=== PATIENT | male | born 1950 | race Caucasian/White ===

== ENCOUNTER 2020-12-17 09:03 | Inpatient (IN) ==
[2020-12-17] MEDS ORDERED: SODIUM CHLORIDE 0.9% 1000ML 1,000 ML IV STA (09:36)
[2020-12-17 09:49] LABS: Basophils # (auto) 0.01 K/uL (0-0.2); Basophils % (auto) 0.1 %; Hemoglobin 15.6 g/dL (14.0-18.0); Immature Granulocytes # (auto) 0.02 K/uL (0.00-0.02); Immature Granulocytes % (auto) 0.2 %; Lymphocytes # (auto) 0.93 K/uL (1.2-3.4); Lymphocytes % (auto) 11.3 %; Mean Corpuscular Hemoglobin 32.4 pg (25-34); Mean Corpuscular Hgb Conc 35.5 g/dL (32-36); Mean Corpuscular Volume 91.5 fL (80-100); Mean Platelet Volume 9.6 fL (7.4-10.4); Monocytes # (auto) 0.62 K/uL (0.11-0.59); Monocytes % (auto) 7.6 %; Neutrophils # (auto) 6.63 K/uL (1.4-6.5); Neutrophils % (auto) 80.8 %; Platelet Count 304 K/uL (130-400); RDW Coefficient of Variation 13.8 % (11.5-14.5); RDW Standard Deviation 47.1 fL (36.4-46.3); Red Blood Count 4.81 M/uL (4.7-6.1); White Blood Count 8.21 K/uL (4.8-10.8)
[2020-12-17] MEDS ORDERED: dexAMETHasone**PF** 10 MG/ML VIAL IV ONE (10:01)
--- NOTE | 2020-12-17 10:08 | Emergency Department Note ---
Impression & Plan COVID-19, Hypoxia ED Provider Note INFORMANT: Patient ED PROVIDER(S): Josesito Carbone MD CHIEF COMPLAINT: Illness PLAN: Disposition: Admitted Condition: Good Outpatient prescription management: none Referral: None MEDICAL DECISION MAKING: Patient presented to the ER because of illness. He was diagnosed with COVID-19 as an outpatient. Confirmation Covid testing was performed. IV was established and he was hydrated. Patient was given IV Decadron as he was hypoxic. He was doing well with supplemental oxygen. Confirmation Covid testing was positive. His D-dimer was elevated and he underwent CT imaging. Chest x-ray showed a finding consistent with Covid pneumonia. CT imaging did not reveal any evidence of clot however since Covid findings were noted. Consultation was made with Dr. Benedict Rm of the [facility] service. Patient was evaluated in the ER for further management. Triage Nursing notes reviewed and agree them. Vital Signs: reviewed and remarkable for hypoxia for EMS Differential diagnosis: COVID-19, reactive airway disease, pneumonia, pneumothorax, COPD, CHF, infections, cardiac ischemia, pulmonary embolism, musculoskeletal, gastrointestinal, as well as other pathologies. Diagnostics interpreted by me: ECG: Rate: 82 Rhythm:Normal sinus [place]:Normal QRS:Normal ST segements:No elevation or depression Other:No PACs or PVCs Cardiac Monitoring: Cardiac monitoring ordered by me: The patient was placed on continuous cardiac monitoring and observed. It revealed a normal sinus rhythm at 78 beats per minute. Imaging studies: Chest x-ray concerning for pneumonia. CT imaging of the chest there is no evidence of pulmonary embolism. Findings are consistent with Covid pneumonia present. HPI: The patient is a 70 year old male who presents to the Emergency Room with complaints of illness. This started a week and a half ago and he was diagnosed with COVID-19. His was sick with similar symptoms first. The patient went to [facility] and was diagnosed. The patient also notes the following associated symptoms, diarrhea, nausea, fevers, chills shortness of breath, weakness, and cough. The patient has found no relieving factors. Patient was prescribed prednisone by his PCP. Current pain is rated as 0/10. Patient's O2 saturation for EMS was 84%. Pt denies LOC, headache, diaphoresis, visual changes, neck pain, chest pain, vomiting, back pain, melena, hematochezia, urinary symptoms, numbness, weakness, lymphadenopathy, rash, or other complaints. ROS: See above HPI for pertinent positives & negatives. A total of 10 systems reviewed and were otherwise negative. PAST MEDICAL HISTORY:See Below , hypertension PAST SURGICAL HISTORY:See Below, FAMILY HISTORY:See Below SOCIAL HISTORY:See Below, , smoker HOME MEDICATIONS:See Below ALLERGIES:See Below VITALS:See Below PHYSICAL EXAMINATION: GENERAL: Awake, alert, dyspneic-appearing, in no distress HENT: Normocephalic, atraumatic. Oropharynx unremarkable. EYES: Normal conjunctiva. Sclera non-icteric. NECK: Inspection normal. Non-tender. Supple. No nuchal rigidity. FROM. No masses. RESPIRATORY: Few scattered crackles otherwise clear to auscultation. No wheezes. Increased respiratory effort. CARDIAC: Normal rate. Normal rhythm. No murmurs. No rubs. Extremities warm and well perfused. Pulses equal. No JVD. GI: Soft, non-distended. No tenderness to palpation. No rebound or guarding. No masses. RECTAL: Deferred. MUSCULOSKELETAL: Atraumatic. Chest examination reveals no tenderness. The back is symmetrical on inspection without obvious abnormality. There is no CVA tenderness to palpation. No joint edema. LOWER EXTREMITIES: Calves are equal size bilaterally and non-tender. No edema. No discoloration. NEURO: Normal sensorium. No sensory or motor deficits noted. SKIN: No rash or jaundice noted. CRITICAL CARE: I have personally spent greater than 35 minutes of critical care time in the direct management of this patient. This includes bedside care, interpretation of diagnostic studies, and testing, discussion with consultants, patient, and family members, and other required patient management activities. These minutes are in excess of all separately billable procedures. 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 Beliefs That Will Affect Care: None Current Living Situation: Spouse Feels Safe at Home: Yes Assistive Devices: Glasses Allergies Allergies Allergy/AdvReac Type Severity Reaction Status Date / Time No Known Allergies Allergy Unverified 12/17/20 10:22 Home Meds Home Medications Medication Instructions Recorded Confirmed [id number] 10 20 ml PO DIRECTED PRN 12/17/20 12/17/20 mg-650 mg/20 mL (day-nt) oral liquids (Mucinex Fast-Max Day Sev Cold-Nite Cold-Flu) Results & Data (ED) Vital Signs Vital Signs - 24 hr 12/17/20 09:07 12/17/20 09:10 12/17/20 09:42 Temperature 36.9 C 36.9 C Temperature Source Oral Oral Pulse Rate 178 H 85 79 Pulse Rate [Apical] 78 Pulse Rate from SpO2 Sensor 127 H Pulse Rhythm Regular Pulse Rhythm [Apical] Regular Pulse Strength Normal Pulse Strength [Apical] Normal Respiratory Rate 31 H 27 H 27 H Respiratory Effort / Characteristics Short of Breath SOB on Exertion Short of Breath SOB on Exertion Respiratory Depth Normal Normal Respiratory Pattern Regular Regular Blood Pressure 134/74 134/74 Blood Pressure [Right Arm] 134/74 Blood Pressure Mean 94 94 Blood Pressure Mean [Right Arm] 94 Blood Pressure Position Semi-fowlers Blood Pressure Position [Right Arm] Semi-fowlers Pulse Oximetry 94 94 93 Oxygen Delivery Method Nasal Cannula Nasal Cannula Nasal Cannula Oxygen Flow Rate 2 2 2 Sepsis Recent Fever Within 48 Hours No Sepsis New/Unexplained Change in Mental Status No Sepsis Action Taken by Nursing No Action Required 12/17/20 10:05 12/17/20 10:30 12/17/20 11:00 Temperature Temperature Source Pulse Rate 80 83 75 Pulse Rate [Apical] Pulse Rate from SpO2 Sensor 79 83 Pulse Rhythm Pulse Rhythm [Apical] Pulse Strength Pulse Strength [Apical] Respiratory Rate 33 H 34 H 24 Respiratory Effort / Characteristics Respiratory Depth Respiratory Pattern Blood Pressure 105/54 L 131/74 130/65 Blood Pressure [Right Arm] Blood Pressure Mean 71 93 86 Blood Pressure Mean [Right Arm] Blood Pressure Position Blood Pressure Position [Right Arm] Pulse Oximetry 93 94 Oxygen Delivery Method Nasal Cannula Nasal Cannula Nasal Cannula Oxygen Flow Rate 2 2 2 Sepsis Recent Fever Within 48 Hours Sepsis New/Unexplained Change in Mental Status Sepsis Action Taken by Nursing 12/17/20 11:30 Temperature Temperature Source Pulse Rate 76 Pulse Rate [Apical] Pulse Rate from SpO2 Sensor 77 Pulse Rhythm Pulse Rhythm [Apical] Pulse Strength Pulse Strength [Apical] Respiratory Rate 21 Respiratory Effort / Characteristics Respiratory Depth Respiratory Pattern Blood Pressure 122/66 Blood Pressure [Right Arm] Blood Pressure Mean 84 Blood Pressure Mean [Right Arm] Blood Pressure Position Blood Pressure Position [Right Arm] Pulse Oximetry 94 Oxygen Delivery Method Nasal Cannula Oxygen Flow Rate 2 Sepsis Recent Fever Within 48 Hours Sepsis New/Unexplained Change in Mental Status Sepsis Action Taken by Nursing Laboratory Data Result diagrams: 12/17/20 09:25 12/17/20 09:25 Lab Results 12/17/20 12/17/20 12/17/20 Range/Units 09:25 09:25 09:25 WBC 8.21 (4.8-10.8) K/uL RBC 4.81 (4.7-6.1) M/uL Hgb 15.6 (14.0-18.0) g/dL Hct 44.0 (42-52) % MCV 91.5 (80-100) fL MCH 32.4 (25-34) pg MCHC 35.5 (32-36) g/dL RDW Std Deviation 47.1 H (36.4-46.3) fL RDW Coeff of Pal 13.8 (11.5-14.5) % Plt Count 304 (130-400) K/uL MPV 9.6 (7.4-10.4) fL Immature Gran % (Auto) 0.2 % Neut % (Auto) 80.8 % Lymph % (Auto) 11.3 % [place] % (Auto) 7.6 % Eos % (Auto) 0.0 % Baso % (Auto) 0.1 % Neut # (Auto) 6.63 H (1.4-6.5) K/uL Lymph # (Auto) 0.93 L (1.2-3.4) K/uL [place] # (Auto) 0.62 H (0.11-0.59) K/uL Eos # (Auto) 0.00 (0-0.5) K/uL Baso # (Auto) 0.01 (0-0.2) K/uL Immature Gran # (Auto) 0.02 (0.00-0.02) K/uL D-Dimer 650 H* (0-500) ug/L FEU Sodium 134 L (136-145) mmol/L Potassium 4.1 (3.5-5.1) mmol/L Chloride 103 (98-107) mmol/L Carbon Dioxide 23 (21-32) mmol/L Anion Gap 9.0 (3-11) BUN 75 H (7-18) mg/dl Creatinine 1.44 H (0.6-1.4) mg/dl Est Cr Clr Drug Dosing 47.7 ml/min Est GFR ( Amer) 57.4 ml/min Est GFR (Non-Af Amer) 49.5 ml/min BUN/Creatinine Ratio 51.8 H (10-20) Glucose 126 H (70-99) mg/dl Calcium 8.9 (8.5-10.1) mg/dl Magnesium 3.1 H (1.8-2.4) mg/dl Total Bilirubin 0.5 (0.2-1) mg/dl AST 75 H (15-37) U/L ALT 56 (12-78) U/L Alkaline Phosphatase 71 (45-117) U/L Troponin I < 0.015 (0-0.045) ng/ml NT-Pro-B Natriuret Pep 385 (0-900) pg/ml Total Protein 7.8 (6.4-8.2) gm/dl Albumin 3.1 L (3.4-5.0) gm/dl Globulin 4.7 H (2.5-4.0) gm/dl Albumin/Globulin Ratio 0.7 L (0.9-2) Specimen Hemolysis Urine Color Urine Appearance (Clear) Urine pH (4.5-7.5) Ur Specific [place] (1.000-1.030) Urine Protein (Negative) Urine Glucose (UA) (Negative) Urine Ketones (Negative) Urine Blood (Negative) Urine Nitrite (Negative) Urine Bilirubin (Negative) Urine Urobilinogen (Negative) Ur Leukocyte Esterase (Negative) Urine WBC (Auto) (0-5) /hpf Urine RBC (Auto) (0-4) /hpf U Hyaline Cast (Auto) (0-5) /lpf U Epithel Cells (Auto) (0-5) /lpf Urine Bacteria (Auto) (Negative) Amorphous Sediment (None Prsent) COVID-19 Eval Order SARS-CoV-2 (PCR) (Negative) 12/17/20 12/17/20 12/17/20 Range/Units 10:10 10:10 10:31 WBC (4.8-10.8) K/uL RBC (4.7-6.1) M/uL Hgb (14.0-18.0) g/dL Hct (42-52) % MCV (80-100) fL MCH (25-34) pg MCHC (32-36) g/dL RDW Std Deviation (36.4-46.3) fL RDW Coeff of Pal (11.5-14.5) % Plt Count (130-400) K/uL MPV (7.4-10.4) fL Immature Gran % (Auto) % Neut % (Auto) % Lymph % (Auto) % [place] % (Auto) % Eos % (Auto) % Baso % (Auto) % Neut # (Auto) (1.4-6.5) K/uL Lymph # (Auto) (1.2-3.4) K/uL [place] # (Auto) (0.11-0.59) K/uL Eos # (Auto) (0-0.5) K/uL Baso # (Auto) (0-0.2) K/uL Immature Gran # (Auto) (0.00-0.02) K/uL D-Dimer (0-500) ug/L FEU Sodium (136-145) mmol/L Potassium (3.5-5.1) mmol/L Chloride (98-107) mmol/L Carbon Dioxide (21-32) mmol/L Anion Gap (3-11) BUN (7-18) mg/dl Creatinine (0.6-1.4) mg/dl Est Cr Clr Drug Dosing ml/min Est GFR ( Amer) ml/min Est GFR (Non-Af Amer) ml/min BUN/Creatinine Ratio (10-20) Glucose (70-99) mg/dl Calcium (8.5-10.1) mg/dl Magnesium (1.8-2.4) mg/dl Total Bilirubin (0.2-1) mg/dl AST (15-37) U/L ALT (12-78) U/L Alkaline Phosphatase (45-117) U/L Troponin I (0-0.045) ng/ml NT-Pro-B Natriuret Pep (0-900) pg/ml Total Protein (6.4-8.2) gm/dl Albumin (3.4-5.0) gm/dl Globulin (2.5-4.0) gm/dl Albumin/Globulin Ratio (0.9-2) Specimen Hemolysis Urine Color Dark Yellow Urine Appearance Clear (Clear) Urine pH 5.0 (4.5-7.5) Ur Specific [place] 1.018 (1.000-1.030) Urine Protein Trace H (Negative) Urine Glucose (UA) Negative (Negative) Urine Ketones Negative (Negative) Urine Blood Negative (Negative) Urine Nitrite Negative (Negative) Urine Bilirubin Negative (Negative) Urine Urobilinogen Negative (Negative) Ur Leukocyte Esterase Negative (Negative) Urine WBC (Auto) 1-5 (0-5) /hpf Urine RBC (Auto) 5-10 H (0-4) /hpf U Hyaline Cast (Auto) 10-30 H (0-5) /lpf U Epithel Cells (Auto) >30 H (0-5) /lpf Urine Bacteria (Auto) 1+ H (Negative) Amorphous Sediment Present A (None Prsent) COVID-19 Eval Order Covid19 at [facility] SARS-CoV-2 (PCR) POSITIVE A* (Negative) Administered Medications Albuterol (Albuterol Hfa 8 Gm Inhaler) 2 puffs INH QIDR AVINASH; Protocol Stop: 01/16/21 15:34 Last Admin: 12/17/20 16:57 Dose: 2 puffs Documented by: [id number] Sodium Chloride (Nss 1000ml) 1,000 mls @ 125 mls/hr IV .Q8H STA Stop: 12/17/20 17:35 Last Infusion: 12/17/20 15:35 Dose: 0 mls/hr Documented by: [id number] Admin: 12/17/20 10:15 Dose: 125 mls/hr Documented by: [id number] Potassium Chloride/Sodium Chloride (Normal Saline W/20 Meq Kcl) 20 meq in 1,000 mls @ 80 mls/hr IV .[id number] AVINASH Stop: 12/18/20 04:04 Last Admin: 12/17/20 16:49 Dose: 80 mls/hr Documented by: [id number] Ceftriaxone Sodium 1,000 mg/ (Dextrose) 50 mls @ 100 mls/hr IV Q24H [facility]; Protocol Stop: 12/24/20 15:59 Last Admin: 12/17/20 16:50 Dose: 100 mls/hr Documented by: [id number] Discontinued Medications Dexamethasone Sodium Phosphate (DexamethasonePf 10 Mg/Ml Vial) 6 mg IV NOW ONE Stop: 12/17/20 10:02 Last Admin: 12/17/20 10:18 Dose: 6 mg Documented by: [id number] Ioversol (Optiray 320 125ml) 120 ml IV ONCE ONE Stop: 12/17/20 10:30 Last Admin: 12/17/20 10:29 Dose: 120 ml Documented by: [id number] Imaging Data Radiologist's Impression: Chest X-Ray 12/17/20 09:37 XR chest 1V portable CLINICAL HISTORY: Dyspnea COMPARISON STUDY: No previous studies for comparison. FINDINGS: No pneumothorax. Minimal blunting of the left costophrenic angle could represent small left pleural effusion. Asymmetrical mixed reticular and airspace opacities within left mid to lower lung could represent infiltrative process/pneumonia. Cardiomediastinal silhouette is within normal limits in size. No significant pulmonary vascular congestion.. Aorta is calcified Osseous structures: Degenerative changes of the spine. IMPRESSION: 1. Infiltrative process/pneumonia within left mid to lower lung. Small left pleural effusion. ACT 112: Negative or not required by law. The above report was generated using voice recognition software. It may contain grammatical, syntax or spelling errors. Electronically signed by: Lucina Lubin DO 12/17/2020 10:20 AM Chest CTA 12/17/20 10:17 CHEST CTA for PULMONARY ARTERIES CT DOSE: 386.22 mGycm HISTORY: Covid positive. Shortness of breath. Positive d-dimer. TECHNIQUE: Multiaxial CT images of the chest were performed following the intravenous administration of contrast to evaluate the pulmonary arteries. Maximal intensity projection images were also obtained. A dose lowering technique was utilized adhering to the principles of ALARA. COMPARISON STUDY: None. FINDINGS: Normal caliber thoracic aorta with no evidence for dissection. Nondiagnostic evaluation of the subsegmental lower lobe pulmonary arteries and majority of the segmental right lower lobe pulmonary arteries due to the respiratory motion artifact. Otherwise, no filling defects within the remaining pulmonary arteries to suggest a pulmonary embolus. There is mild left pleural thickening most pronounced at the lung base. Limited views of the upper abdomen demonstrate a normal spleen and adrenal glands. There is a small hiatus hernia. There is a 1.4 cm hypodense lesion within the right hepatic dome. This is now well visualized due to the motion artifact. Normal esophagus. No pleural or pericardial effusions. Subcentimeter mediastinal and hilar lymph nodes do not meet CT criteria for pathologic involvement. The heart is normal in size. No pneumothorax. Emphysema. Mild volume loss within the left hemithorax. There is mild chronic interstitial thickening. There are small faint groundglass airspace opacities within the base of the right middle lobe. Focal consolidation within the left lower lobe posteriorly. This has the appearance of round atelectasis. However, superimposed pneumonia would be impossible to exclude given the lack of prior studies. There are additional areas of scarlike densities within the lingula with small patchy densities and interstitial thickening within the later al aspect of the left upper lobe. This could be chronic or represent an atypical pneumonia. IMPRESSION: 1. No evidence for pulmonary embolus with limitations as described above. 2. Mild volume loss and mild left pleural thickening. There is a focal area of consolidation within the left lower lobe posteriorly. This appears to represent round atelectasis. However, a superimposed pneumonia would be impossible to exclude given the lack of prior studies. 3 month follow-up recommended to evaluate for stability/resolution. 3. A few faint small patchy groundglass densities within the right middle lobe and a few small patchy densities and interstitial thickening within the left upper lobe. This raises the possibility of a mild viral pneumonia. 4. Emphysema. 5. Additional findings as described above. ACT 112: Negative or not required by law. Electronically signed by: Nader Palm M.D. 12/17/2020 11:03 AM Discharge Plan Visit Data Chief Complaint: Illness Stated Complaint: COUGH, CHEST PAIN, DIARRHEA, COVID + ED Provider: Josesito Carbone Discharge Problem: COVID-19, Hypoxia Patient Disposition: Admitted As Inpatient Discharge Instructions Interventions: ED Discharge Assessment Last Done: 12/17/20 15:05
[2020-12-17 10:16] LABS: D Dimer 650 ug/L FEU (0-500)
[2020-12-17 10:20] LABS: Alanine Aminotransferase 56 U/L (12-78); Albumin Globulin Ratio 0.7 (0.9-2); Albumin Level 3.1 gm/dl (3.4-5.0); Alkaline Phosphatase 71 U/L (45-117); Aspartate Aminotransferase 75 U/L (15-37); BUN Creatinine Ratio 51.8 (10-20); Bilirubin,Total 0.5 mg/dl (0.2-1); Blood Urea Nitrogen 75 mg/dl (7-18); Calcium 8.9 mg/dl (8.5-10.1); Carbon Dioxide 23 mmol/L (21-32); Chloride 103 mmol/L (98-107); Creatinine Clr Calc Pharmacy 47.7 ml/min; Est GFR (African American) 57.4 ml/min; Est GFR (Non-African American) 49.5 ml/min; Globulin 4.7 gm/dl (2.5-4.0); Glucose 126 mg/dl (70-99); Magnesium 3.1 mg/dl (1.8-2.4); NT Pro B Type Natriuretic Pept 385 pg/ml (0-900); Potassium 4.1 mmol/L (3.5-5.1); Sodium 134 mmol/L (136-145); Total Protein 7.8 gm/dl (6.4-8.2); Troponin I < 0.015 ng/ml (0-0.045)
--- NOTE | 2020-12-17 10:21 | XRay Report ---
XR chest 1V portable CLINICAL HISTORY: Dyspnea COMPARISON STUDY: No previous studies for comparison. FINDINGS: No pneumothorax. Minimal blunting of the left costophrenic angle could represent small left pleural effusion. Asymmetrical mixed reticular and airspace opacities within left mid to lower lung could represent inf iltrative process/pneumonia. Cardiomediastinal silhouette is within normal limits in size. No significant pulmonary vascular congestion.. Aorta is calcified Osseous structures: Degenerative changes of the spine. IMPRESSION: 1. Infiltrative process/pneumonia within left mid to lower lung. Small left pleural effusion. ACT 112: Negative or not required by law. The above report was generated using voice recognition software. It may contain grammatical, syntax o r spelling errors. Electronically signed by: Lucina Lubin DO 12/17/2020 10:20 AM
[2020-12-17] MEDS ORDERED: OPTIRAY 320 125ml IV ONE (10:29)
[2020-12-17 10:46] LABS: Appearance Urine Clear (Clear); Bilirubin Urine Negative (Negative); Blood Urine Negative (Negative); Color Urine Dark Yellow; Epithelial Cell Urine Auto >30 /lpf (0-5); Glucose Urine UA Negative (Negative); Ketones Urine Negative (Negative); Leukocyte Esterase Urine Negative (Negative); Nitrite Urine Negative (Negative); Protein Urine Trace (Negative); Specific Gravity Urine 1.018 (1.000-1.030); Urobilinogen Urine Negative (Negative)
[2020-12-17 10:57] LABS: Amorphous Sediment Urine Present (None Prsent); Bacteria Urine Automated 1+ (Negative)
--- NOTE | 2020-12-17 11:04 | CT Scan Report ---
CHEST CTA for PULMONARY ARTERIES CT DOSE: 386.22 mGycm HISTORY: Covid positive. Shortness of breath. Positive d-dimer. TECHNIQUE: Multiaxial CT images of the chest were performed following the intravenous administration of contrast to evaluate the pulmonary arteries. Maximal intensity projection images were also obtaine d. A dose lowering technique was utilized adhering to the principles of ALARA. COMPARISON STUDY: None. FINDINGS: Normal caliber thoracic aorta with no evidence for dissection. Nondiagnostic evaluation of the subsegmental lower lobe pulmonary arteries and majority of the segmental right lower lobe pulmona ry arteries due to the respiratory motion artifact. Otherwise, no filling defects within the remainin g pulmonary arteries to suggest a pulmonary embolus. There is mild left pleural thickening most prono unced at the lung base. Limited views of the upper abdomen demonstrate a normal spleen and adrenal gl ands. There is a small hiatus hernia. There is a 1.4 cm hypodense lesion within the right hepatic dom e. This is now well visualized due to the motion artifact. Normal esophagus. No pleural or pericardia l effusions. Subcentimeter mediastinal and hilar lymph nodes do not meet CT criteria for pathologic i nvolvement. The heart is normal in size. No pneumothorax. Emphysema. Mild volume loss within the left hemithorax. There is mild chronic interstitial thickening. There are small faint groundglass airspac e opacities within the base of the right middle lobe. Focal consolidation within the left lower lobe posteriorly. This has the appearance of round atelectasis. However, superimposed pneumonia would be i mpossible to exclude given the lack of prior studies. There are additional areas of scarlike densitie s within the lingula with small patchy densities and interstitial thickening within the lateral aspec t of the left upper lobe. This could be chronic or represent an atypical pneumonia. IMPRESSION: 1. No evidence for pulmonary embolus with limitations as described above. 2. Mild volume loss and mild left pleural thickening. There is a focal area of consolidation within t he left lower lobe posteriorly. This appears to represent round atelectasis. However, a superimposed pneumonia would be impossible to exclude given the lack of prior studies. 3 month follow-up recommend ed to evaluate for stability/resolution. 3. A few faint small patchy groundglass densities within the right middle lobe and a few small patchy densities and interstitial thickening within the left upper lobe. This raises the possibility of a m ild viral pneumonia. 4. Emphysema. 5. Additional findings as described above. ACT 112: Negative or not required by law. Electronically signed by: Nader Palm M.D. 12/17/2020 11:03 AM
--- NOTE | 2020-12-17 11:48 | History & Physical Report ---
Date of Service December 17, 2020 Assessment & Plan (1) Pneumonia due to COVID-19 virus: Plan: Pneumonia due to COVID-19 virus/secondary bacterial pneumonia/hypoxia- Symptoms present for least 2 weeks and now worsening. Dexamethasone 6 mg IV every morning Guaifenesin extended release 12 mg p.o. every 12 hours Albuterol HFA 2 puffs 4 times daily and every 2 hours as needed DuoNebs every 2 hours as needed Ceftriaxone 1 g IV daily Azithromycin 500 mg IV daily Hycodan syrup 5 mils p.o. every 4 hours as needed cough Nasal cannula 2 L oxygen, titrate to keep pulse ox around 95% (2) Hypoxia: Plan: See above (3) Secondary bacterial pneumonia: Plan: See above x-ray and CT showed left lower lobe consolidation (4) Renal insufficiency: Plan: Creatinine 1.4 upon admission, with unknown baseline. Gentle rehydration with IV fluids, recheck laboratories in a.m. (5) Transaminitis: Plan: AST 75 upon admission. Likely secondary to COVID-19 infection (6) Tobacco use disorder: Plan: Cessation counseling NicoDerm patch if required History of Present Illness Chief Complaint: The patient presents to the emergency department with complaint of 2 weeks of persistent and now worsening productive cough and shortness of breath, having been diagnosed in the outpatient setting with COVID-19 Primary Care Provider: Jevon Rankin The patient is a 70-year-old male with a past medical history of tobacco abuse who presents to the emergency department, along with his , with similar symptoms as noted above. Of note, he did not receive the COVID-19 vaccine. Chest x-ray in the emergency department revealed a left lower lobe pneumonia, and separate left pleural effusion. CT angiography of chest PE protocol was negative for PE, did show mild volume loss and mild left pleural thickening with a focal consolidation in the left lower lobe posteriorly. There were a few faint small patchy groundglass densities within the right middle lobe and left upper lobe raising the possibili ty of a viral pneumonia. Emphysema. Laboratory abnormalities: Sodium 134, creatinine 1.44, AST 75, albumin 3.1, BUN 75, glucose 126, D-dimer 650. COVID-19 positive The patient was administered dexamethasone 6 mg IV and placed on normal saline at 125 mils per hour by the ED Allergies Allergy/AdvReac Type Severity Reaction Status Date / Time No Known Allergies Allergy Unverified 12/17/20 10:22 Home Medications Medication Instructions Recorded Confirmed Type [id number]-GG 10 20 ml PO DIRECTED PRN 12/17/20 12/17/20 History mg-650 mg/20 mL (day-nt) oral liquids (Mucinex Fast-Max Day Sev Cold-Nite Cold-Flu) Past Med/Surg History Social History Smoking Status: Current every day smoker Tobacco Type: Cigarettes Preferred Language: Indian Feels Safe at Home: Yes Review of Systems Review of Systems: The patient denies chest pain, palpitations, lower extremity swelling, sore throat, fevers, chills, sweats, nausea, vomiting, diarrhea , constipation, abdominal pain, pelvic pain, blood in urine or stool, dysuria, urinary frequency or urgency, lightheadedness, dizziness, headache, memory loss, loss of consciousness, rash, abnormal bruising or bleeding, imbalance, focal weakness, numbness or tingling in arms or legs, generalized arthralgias or myalgias, back or neck pain, or night sweats. The review of systems is otherwise negative other than for that already noted above, and at least 10 systems have been reviewed. Physical Exam Physical Exam: The patient is awake, alert and oriented 3, well developed and well nourished, normocephalic and atraumatic, lying in bed and in mild distress secondary to coughing HEENT--PERRL, EOMI, mucous membranes and oropharynx dry. Neck--supple. No JVD. No bruits. Thyroid normal, trachea midline, no adenopathy. Heart--normal S1 and S2. No murmurs, rubs or gallops. Lungs--coarse breath sounds bilaterally. Decreased breath sounds left base. Mild respiratory distress, no accessory muscle use. Abdomen--normal bowel sounds and soft. Nontender. Nondistended, no hernias or masses, no organomegaly. Extremities--no cyanosis or clubbing. No edema. Dermatologic--normal skin turgor, normal color, no abnormal lymph nodes, no rash. Neurologic--cranial nerves II through XII grossly intact. Rheumatologic--normal range of motion. Psychiatric--normal affect. Results & Data Results & Data ([facility]) Vital Signs (Past 12 Hours) Vital Signs Temp Pulse Pulse Resp BP BP Pulse Ox 12/17/20 11:30 76 21 122/66 94 12/17/20 11:00 75 24 130/65 12/17/20 10:30 83 34 H 131/74 94 12/17/20 10:05 80 33 H 105/54 L 93 12/17/20 09:42 98.4 F 79 78 27 H 134/74 93 12/17/20 09:10 98.4 F 85 27 H 134/74 94 12/17/20 09:07 178 H 31 H 134/74 94 Laboratory Results Laboratory Results WBC 8.21 K/uL (4.8-10.8) 12/17/20 09:25 RBC 4.81 M/uL (4.7-6.1) 12/17/20 09:25 Hgb 15.6 g/dL (14.0-18.0) 12/17/20 09:25 Hct 44.0 % (42-52) 12/17/20 09:25 MCV 91.5 fL (80-100) 12/17/20 09:25 MCH 32.4 pg (25-34) 12/17/20 09:25 MCHC 35.5 g/dL (32-36) 12/17/20 09:25 RDW Std Deviation 47.1 fL (36.4-46.3) H 12/17/20 09:25 RDW Coeff of Pal 13.8 % (11.5-14.5) 12/17/20 09:25 Plt Count 304 K/uL (130-400) 12/17/20 09:25 MPV 9.6 fL (7.4-10.4) 12/17/20 09:25 Immature Gran % (Auto) 0.2 % 12/17/20 09:25 Neut % (Auto) 80.8 % 12/17/20 09:25 Lymph % (Auto) 11.3 % 12/17/20 09:25 [place] % (Auto) 7.6 % 12/17/20 09:25 Eos % (Auto) 0.0 % 12/17/20 09:25 Baso % (Auto) 0.1 % 12/17/20 09:25 Neut # (Auto) 6.63 K/uL (1.4-6.5) H 12/17/20 09:25 Lymph # (Auto) 0.93 K/uL (1.2-3.4) L 12/17/20 09:25 [place] # (Auto) 0.62 K/uL (0.11-0.59) H 12/17/20 09:25 Eos # (Auto) 0.00 K/uL (0-0.5) 12/17/20 09:25 Baso # (Auto) 0.01 K/uL (0-0.2) 12/17/20 09:25 Immature Gran # (Auto) 0.02 K/uL (0.00-0.02) 12/17/20 09:25 D-Dimer 650 ug/L FEU (0-500) H* 12/17/20 09:25 Sodium 134 mmol/L (136-145) L 12/17/20 09:25 Potassium 4.1 mmol/L (3.5-5.1) 12/17/20 09:25 Chloride 103 mmol/L (98-107) 12/17/20 09:25 Carbon Dioxide 23 mmol/L (21-32) 12/17/20 09:25 Anion Gap 9.0 (3-11) 12/17/20 09:25 BUN 75 mg/dl (7-18) H 12/17/20 09:25 Creatinine 1.44 mg/dl (0.6-1.4) H 12/17/20 09:25 Est Cr Clr Drug Dosing 47.7 ml/min 12/17/20 09:25 Est GFR ( Amer) 57.4 ml/min 12/17/20 09:25 Est GFR (Non-Af Amer) 49.5 ml/min 12/17/20 09:25 BUN/Creatinine Ratio 51.8 (10-20) H 12/17/20 09:25 Glucose 126 mg/dl (70-99) H 12/17/20 09:25 Calcium 8.9 mg/dl (8.5-10.1) 12/17/20 09:25 Magnesium 3.1 mg/dl (1.8-2.4) H 12/17/20 09:25 Total Bilirubin 0.5 mg/dl (0.2-1) 12/17/20 09:25 AST 75 U/L (15-37) H 12/17/20 09:25 ALT 56 U/L (12-78) 12/17/20 09:25 Alkaline Phosphatase 71 U/L (45-117) 12/17/20 09:25 Troponin I < 0.015 ng/ml (0-0.045) 12/17/20 09:25 NT-Pro-B Natriuret Pep 385 pg/ml (0-900) 12/17/20 09:25 Total Protein 7.8 gm/dl (6.4-8.2) 12/17/20 09:25 Albumin 3.1 gm/dl (3.4-5.0) L 12/17/20 09:25 Globulin 4.7 gm/dl (2.5-4.0) H 12/17/20 09:25 Albumin/Globulin Ratio 0.7 (0.9-2) L 12/17/20 09:25 Specimen Hemolysis 12/17/20 09:25 Urine Color Dark Yellow 12/17/20 10:31 Urine Appearance Clear (Clear) 12/17/20 10:31 Urine pH 5.0 (4.5-7.5) 12/17/20 10:31 Ur Specific [place] 1.018 (1.000-1.030) 12/17/20 10:31 Urine Protein Trace (Negative) H 12/17/20 10:31 Urine Glucose (UA) Negative (Negative) 12/17/20 10:31 Urine Ketones Negative (Negative) 12/17/20 10:31 Urine Blood Negative (Negative) 12/17/20 10:31 Urine Nitrite Negative (Negative) 12/17/20 10:31 Urine Bilirubin Negative (Negative) 12/17/20 10:31 Urine Urobilinogen Negative (Negative) 12/17/20 10:31 Ur Leukocyte Esterase Negative (Negative) 12/17/20 10:31 Urine WBC (Auto) 1-5 /hpf (0-5) 12/17/20 10:31 Urine RBC (Auto) 5-10 /hpf (0-4) H 12/17/20 10:31 U Hyaline Cast (Auto) 10-30 /lpf (0-5) H 12/17/20 10:31 U Epithel Cells (Auto) >30 /lpf (0-5) H 12/17/20 10:31 Urine Bacteria (Auto) 1+ (Negative) H 12/17/20 10:31 Amorphous Sediment Present (None Prsent) A 12/17/20 10:31 COVID-19 Eval Order Covid19 at [facility] 12/17/20 10:10 SARS-CoV-2 (PCR) POSITIVE (Negative) A* 12/17/20 10:10 Impressions Chest X-Ray 12/17/20 09:37 XR chest 1V portable CLINICAL HISTORY: Dyspnea COMPARISON STUDY: No previous studies for comparison. FINDINGS: No pneumothorax. Minimal blunting of the left costophrenic angle could represent small left pleural effusion. Asymmetrical mixed reticular and airspace opacities within left mid to lower lung could represent infiltrative process/pneumonia. Cardiomediastinal silhouette is within normal limits in size. No significant pulmonary vascular congestion.. Aorta is calcified Osseous structures: Degenerative changes of the spine. IMPRESSION: 1. Infiltrative process/pneumonia within left mid to lower lung. Small left pleural effusion. ACT 112: Negative or not required by law. The above report was generated using voice recognition software. It may contain grammatical, syntax or spelling errors. Electronically signed by: Lucina Lubin DO 12/17/2020 10:20 AM Chest CTA 12/17/20 10:17 CHEST CTA for PULMONARY ARTERIES CT DOSE: 386.22 mGycm HISTORY: Covid positive. Shortness of breath. Positive d-dimer. TECHNIQUE: Multiaxial CT images of the chest were performed following the intravenous administration of contrast to evaluate the pulmonary arteries. Maximal intensity projection images were also obtained. A dose lowering technique was utilized adhering to the principles of ALARA. COMPARISON STUDY: None. FINDINGS: Normal caliber thoracic aorta with no evidence for dissection. Nondiagnostic evaluation of the subsegmental lower lobe pulmonary arteries and majority of the segmental right lower lobe pulmonary arteries due to the respiratory motion artifact. Otherwise, no filling defects within the remaining pulmonary arteries to suggest a pulmonary embolus. There is mild left pleural thickening most pronounced at the lung base. Limited views of the upper abdomen demonstrate a normal spleen and adrenal glands. There is a small hiatus hernia. There is a 1.4 cm hypodense lesion within the right hepatic dome. This is now well visualized due to the motion artifact. Normal esophagus. No pleural or pericardial effusions. Subcentimeter mediastinal and hilar lymph nodes do not meet CT criteria for pathologic involvement. The heart is normal in size. No pneumothorax. Emphysema. Mild volume loss within the left hemithorax. There is mild chronic interstitial thickening. There are small faint groundglass airspace opacities within the base of the right middle lobe. Focal consolidation within the left lower lobe posteriorly. This has the appearance of round atelectasis. However, superimposed pneumonia would be impossible to exclude given the lack of prior studies. There are additional areas of scarlike densities within the lingula with small patchy densities and interstitial thickening within the lateral aspect of the left upper lobe. This could be chronic or represent an atypical pneumonia. IMPRESSION: 1. No evidence for pulmonary embolus with limitations as described above. 2. Mild volume loss and mild left pleural thickening. There is a focal area of consolidation within the left lower lobe posteriorly. This appears to represent round atelectasis. However, a superimposed pneumonia would be impossible to exclude given the lack of prior studies. 3 month follow-up recommended to evaluate for stability/resolution. 3. A few faint small patchy groundglass densities within the right middle lobe and a few small patchy densities and interstitial thickening within the left upper lobe. This raises the possibility of a mild viral pneumonia. 4. Emphysema. 5. Additional findings as described above. ACT 112: Negative or not required by law. Electronically signed by: Nader Palm M.D. 12/17/2020 11:03 AM Code Status & VTE Plan Code Status Full code VTE Prophylaxis Plan VTE Prophylaxis will be ordered: Yes PG Care Time/CCT Total # of Minutes Spent Total Time Spent with Patient: Total time spent is greater than 50% in coordination of care (as documented) at patient's floor/unit and/or counseling patient: Coding Level of Care Code 78079 Initial Inpt Care Lvl 3 Diagnoses Pneumonia due to COVID-19 virus U07.1; J12.82 Hypoxia R09.02 Secondary bacterial pneumonia J15.9 Renal insufficiency N28.9 Transaminitis R74.01 Tobacco use disorder F17.200
--- NOTE | 2020-12-17 13:24 | Electrocardiogram Report ---
Test Reason : Blood Pressure : / mmHG Vent. Rate : 082 BPM Atrial Rate : 082 BPM P-R Int : 154 ms QRS Dur : 088 ms QT Int : 348 ms P-R-T Axes : 085 044 062 degrees QTc Int : 406 ms Normal sinus rhythm Normal ECG No previous ECGs available Confirmed by Gustabo Miller ([id number]) on 12/17/2020 1:24:08 PM Referred By: REFERRED SELF Confirmed By:Israel Miller
[2020-12-17] MEDS ORDERED: ALBUT/IPRATROP 3MG/0.5MG NEB 3 ML VIAL NEB PRN (15:35)
[2020-12-17] MEDS ORDERED: ALBUTEROL HFA 8 GM INHALER INH SCH (15:35)
[2020-12-17] MEDS ORDERED: NSS + 20MEQ KCL 20 MEQ/1,000 ML BAG IV SCH (15:35)
[2020-12-17] MEDS ORDERED: ACETAMINOPHEN 325 MG TAB PO PRN (15:35)
[2020-12-17] MEDS ORDERED: ONDANSETRON INJ 2 MG/ML 2 ML VIAL IV PRN (15:35)
[2020-12-17] MEDS: cefTRIAXone SODIUM 1,000 MG in DEXTROSE 5% 50 ML IV SCH (16:50)
[2020-12-17] MEDS: ALBUTEROL HFA 8 GM INHALER INH SCH ×2 (16:57→19:26)
[2020-12-17] MEDS: AZITHROMYCIN 500 MG in DEXTROSE 5% 250 ML IV SCH (17:40)
[2020-12-17] MEDS: ENOXAPARIN INJ 40 MG/0.4 ML SYR SQ SCH (19:47)
[2020-12-17] MEDS: guaiFENesin 600 MG TABCR PO SCH (19:47)
[2020-12-17] MEDS ORDERED: ENOXAPARIN INJ 40 MG/0.4 ML SYR SQ SCH (21:00)
[2020-12-18 06:40] LABS: Basophils # (auto) 0.01 K/uL (0-0.2); Basophils % (auto) 0.1 %; Hematocrit (blood only) 40.3 % (42-52); Hemoglobin 13.7 g/dL (14.0-18.0); Immature Granulocytes # (auto) 0.05 K/uL (0.00-0.02); Immature Granulocytes % (auto) 0.6 %; Lymphocytes # (auto) 0.85 K/uL (1.2-3.4); Lymphocytes % (auto) 10.7 %; Mean Corpuscular Hemoglobin 31.4 pg (25-34); Mean Corpuscular Volume 92.4 fL (80-100); Mean Platelet Volume 9.8 fL (7.4-10.4); Monocytes # (auto) 0.88 K/uL (0.11-0.59); Monocytes % (auto) 11.1 %; Neutrophils # (auto) 6.15 K/uL (1.4-6.5); Neutrophils % (auto) 77.5 %; Platelet Count 278 K/uL (130-400); RDW Coefficient of Variation 14.1 % (11.5-14.5); RDW Standard Deviation 47.7 fL (36.4-46.3); Red Blood Count 4.36 M/uL (4.7-6.1); White Blood Count 7.94 K/uL (4.8-10.8)
[2020-12-18] MEDS: ALBUTEROL HFA 8 GM INHALER INH SCH ×4 (07:28→19:47)
[2020-12-18] MEDS: dexAMETHasone 6 MG in SYRINGE 0 ML IV SCH (07:59)
[2020-12-18] MEDS: guaiFENesin 600 MG TABCR PO SCH ×2 (08:00→23:05)
[2020-12-18] MEDS: HYDROcodone/HOMATROPINE SYRUP 5MG/1.5MG 5ML UDP PO PRN ×2 (08:05→17:59)
[2020-12-18 08:10] LABS: Albumin Globulin Ratio 0.7 (0.9-2); Albumin Level 2.6 gm/dl (3.4-5.0); BUN Creatinine Ratio 60.8 (10-20); Bilirubin,Total 0.5 mg/dl (0.2-1); Calcium 8.3 mg/dl (8.5-10.1); Creatinine Clr Calc Pharmacy 81.3 ml/min; Est GFR (African American) 102.3 ml/min; Est GFR (Non-African American) 88.3 ml/min; Magnesium 3.5 mg/dl (1.8-2.4); Potassium 4.4 mmol/L (3.5-5.1); Total Protein 6.6 gm/dl (6.4-8.2)
[2020-12-18] MEDS: cefTRIAXone SODIUM 1,000 MG in DEXTROSE 5% 50 ML IV SCH (15:46)
[2020-12-18] MEDS: AZITHROMYCIN 500 MG in DEXTROSE 5% 250 ML IV SCH (16:28)
--- NOTE | 2020-12-18 19:24 | Hospitalist Progress Note ---
Date of Service December 18, 2020 Assessment & Plan (1) Pneumonia due to COVID-19 virus: Plan: Pneumonia due to COVID-19 virus/secondary bacterial pneumonia/hypoxia- Symptoms present for least 2 weeks and now worsening. Improving but requiring 5 L nasal cannula Continue dexamethasone 6 mg IV every morning Guaifenesin extended release 12 mg p.o. every 12 hours Albuterol HFA 2 puffs 4 times daily and every 2 hours as needed Continue scheduled duo nebs Advised prone positioning as much as possible, add on incentive spirometer and flutter valve Ceftriaxone 1 g IV daily Azithromycin 500 mg IV daily Hycodan syrup 5 mils p.o. every 4 hours as needed cough Nasal cannula 2 L oxygen, titrate to keep pulse ox around 95% (2) Hypoxia: Plan: See above (3) Secondary bacterial pneumonia: Plan: See above x-ray and CT showed left lower lobe consolidation Treating with antibiotics (4) Renal insufficiency: Plan: Creatinine 1.4 upon admission, with unknown baseline. Now improved down to 0.88 No fluids needed (5) Transaminitis: Plan: AST 75 upon admission. Improving today Likely secondary to COVID-19 infection (6) Tobacco use disorder: Plan: Cessation counseling NicoDerm patch if required Plan: DVT prophylaxis Lovenox SQ Disposition-continued stay Admission and Anticipated Discharge Date Admission Date: December 17, 2020 Subjective Patient reports feeling okay, not short of breath. Remains on 5 L nasal cannula. Mild cough. No chest pains or nausea. Appetite is good. Discussed prone therapy as he was lying flat on his back when I came in. Review of Systems Review of Systems: All systems reviewed & are unremarkable except as noted in HPI & below Physical Exam Constitutional: WD/WN, vitals as above Eyes: + anicteric sclerae Neck: trachea midline, no thyromegaly Respiratory: normal respiratory effort Auscultation: + diminished lung sounds (Diminished throughout) and + crackles (At right base); no rhonchi and no wheezes Cardiovascular: RRR, no murmur, no edema Chest (Breasts): Chest: normal inspection of chest Gastrointestinal (Abdomen): normal bowel sounds, soft, nontender, no hepatosplenomegaly Musculoskeletal: Extremities: extremities normal to inspection; no cyanosis and no clubbing Skin: no rashes, warm and dry Neurologic: moves all extremities and awake; no focal motor deficits Psychiatric: A+Ox3, euthymic affect Lymphatic: no lymphedema Results & Data Results & Data ([facility]) Vital Signs (Past 12 Hours) Vital Signs Temp Pulse Pulse Pulse Resp BP Pulse Ox 12/18/20 16:00 55 L 12/18/20 15:48 87 18 90 12/18/20 15:44 36.6 C 60 20 121/68 91 12/18/20 12:28 36.5 C 59 L 18 106/62 93 12/18/20 11:21 57 L 16 92 12/18/20 09:32 91 12/18/20 07:28 68 16 97 12/18/20 07:25 55 L Laboratory Results Labs reviewed PG Care Time/CCT Total # of Minutes Spent Total Time Spent with Patient: Total time spent is greater than 50% in coordination of care (as documented) at patient's floor/unit and/or counseling patient: Coding Level of Care Code 22835 Subseq Hosp Care Lvl 2 Diagnoses Pneumonia due to COVID-19 virus U07.1; J12.82 Hypoxia R09.02 Secondary bacterial pneumonia J15.9 Renal insufficiency N28.9 Transaminitis R74.01 Tobacco use disorder F17.200
[2020-12-18] MEDS: ENOXAPARIN INJ 40 MG/0.4 ML SYR SQ SCH (23:05)
[2020-12-19 05:56] LABS: Basophils # (auto) 0.02 K/uL (0-0.2); Basophils % (auto) 0.2 %; Hematocrit (blood only) 40.9 % (42-52); Hemoglobin 13.8 g/dL (14.0-18.0); Immature Granulocytes # (auto) 0.08 K/uL (0.00-0.02); Immature Granulocytes % (auto) 0.8 %; Lymphocytes # (auto) 0.77 K/uL (1.2-3.4); Lymphocytes % (auto) 7.8 %; Mean Corpuscular Hemoglobin 31.5 pg (25-34); Mean Corpuscular Hgb Conc 33.7 g/dL (32-36); Mean Corpuscular Volume 93.4 fL (80-100); Mean Platelet Volume 9.8 fL (7.4-10.4); Monocytes # (auto) 0.93 K/uL (0.11-0.59); Monocytes % (auto) 9.5 %; Neutrophils # (auto) 8.02 K/uL (1.4-6.5); Neutrophils % (auto) 81.7 %; Platelet Count 331 K/uL (130-400); RDW Coefficient of Variation 14.1 % (11.5-14.5); RDW Standard Deviation 48.2 fL (36.4-46.3); Red Blood Count 4.38 M/uL (4.7-6.1); White Blood Count 9.82 K/uL (4.8-10.8)
[2020-12-19 06:43] LABS: Albumin Level 2.4 gm/dl (3.4-5.0); BUN Creatinine Ratio 46.5 (10-20); Calcium 8.5 mg/dl (8.5-10.1); Creatinine Clr Calc Pharmacy 104.5 ml/min; Est GFR (African American) 114.4 ml/min; Est GFR (Non-African American) 98.7 ml/min; Magnesium 3.3 mg/dl (1.8-2.4); Potassium 4.5 mmol/L (3.5-5.1)
[2020-12-19 06:49] LABS: Albumin Globulin Ratio 0.6 (0.9-2); Bilirubin,Total 0.5 mg/dl (0.2-1); Total Protein 6.4 gm/dl (6.4-8.2)
[2020-12-19] MEDS: ALBUTEROL HFA 8 GM INHALER INH SCH ×4 (08:02→19:35)
[2020-12-19] MEDS: dexAMETHasone 6 MG in SYRINGE 0 ML IV SCH (08:27)
[2020-12-19] MEDS: guaiFENesin 600 MG TABCR PO SCH ×2 (08:28→19:26)
--- NOTE | 2020-12-19 16:46 | Hospitalist Progress Note ---
Date of Service December 19, 2020 Assessment & Plan (1) Pneumonia due to COVID-19 virus: Plan: Pneumonia due to COVID-19 virus/secondary bacterial pneumonia/hypoxia- Symptoms present for least 2 weeks and now worsening. Slightly improved, but requiring 5 L nasal cannula Still coughing Continue dexamethasone 6 mg IV daily Continue Mucinex every 12 Albuterol HFA 2 puffs 4 times daily and every 2 hours as needed Advised prone positioning as much as possible, but he is only able to sleep on his side -Continue on incentive spirometer and flutter valve For secondary bacterial pneumonia, continue ceftriaxone 1 g IV daily (last dose on 12/23) and convert IV azithromycin to 250 mg p.o. daily-last dose on 12/21 Continue Hycodan syrup 5 mils p.o. every 4 hours as needed cough -Continue supplemental O2 and wean off as able to Given rounded opacity in left lower lung which could represent atelectasis versus pneumonia, radiology recommends repeat CT chest in 3 months to ensure resolution (2) Hypoxia: Plan: See above (3) Secondary bacterial pneumonia: Plan: See above x-ray and CT showed left lower lobe consolidation Treating with antibiotics Repeat imaging with chest CT in 3 months as above (4) Renal insufficiency: Plan: Creatinine 1.4 upon admission, with unknown baseline. Now improved down to normal No fluids needed (5) Transaminitis: Plan: AST 75 upon admission. Almost completely back to normal now Likely secondary to COVID-19 infection (6) Tobacco use disorder: Plan: Cessation counseling NicoDerm patch if required Plan: DVT prophylaxis Lovenox SQ Disposition-continued stay Admission and Anticipated Discharge Date Admission Date: December 17, 2020 Subjective Patient reports still coughing. Not short of breath. Tried to wean to 4 L today but dropped to 87% was turned back up to 5 L. He reports he is not able to lie prone but has been sleeping on his side. He has a good appetite, no diarrhea. No other concerns. Telemetry with normal sinus rhythm with rates in the 50s to 60s Review of Systems Review of Systems: All systems reviewed & are unremarkable except as noted in HPI & below Physical Exam Constitutional: WD/WN, vitals as above Eyes: + anicteric sclerae Neck: trachea midline, no thyromegaly Respiratory: normal respiratory effort Auscultation: + diminished lung sounds (Diminished throughout) and + crackles (At right base); no rhonchi and no wheezes Cardiovascular: RRR, no murmur, no edema Chest (Breasts): Chest: normal inspection of chest Gastrointestinal (Abdomen): normal bowel sounds, soft, nontender, no hepatosplenomegaly Musculoskeletal: Extremities: extremities normal to inspection; no cyanosis and no clubbing Skin: no rashes, warm and dry Neurologic: moves all extremities and awake; no focal motor deficits Psychiatric: A+Ox3, euthymic affect Lymphatic: no lymphedema Results & Data Results & Data ([facility]) Vital Signs (Past 12 Hours) Vital Signs Temp Pulse Pulse Pulse Resp BP Pulse Ox 12/19/20 16:00 59 L 12/19/20 15:17 66 18 99 12/19/20 12:12 36.4 C L 71 18 110/65 93 12/19/20 10:59 75 18 92 12/19/20 08:33 36.9 C 65 16 122/71 90 12/19/20 08:03 69 18 92 12/19/20 07:20 56 L Laboratory Results 12/19/20 12/19/20 Range/Units 05:29 05:29 WBC 9.82 (4.8-10.8) K/uL RBC 4.38 L (4.7-6.1) M/uL Hgb 13.8 L (14.0-18.0) g/dL Hct 40.9 L (42-52) % MCV 93.4 (80-100) fL MCH 31.5 (25-34) pg MCHC 33.7 (32-36) g/dL RDW Std Deviation 48.2 H (36.4-46.3) fL RDW Coeff of Pal 14.1 (11.5-14.5) % Plt Count 331 (130-400) K/uL MPV 9.8 (7.4-10.4) fL Immature Gran % (Auto) 0.8 % Neut % (Auto) 81.7 % Lymph % (Auto) 7.8 % [place] % (Auto) 9.5 % Eos % (Auto) 0.0 % Baso % (Auto) 0.2 % Neut # (Auto) 8.02 H (1.4-6.5) K/uL Lymph # (Auto) 0.77 L (1.2-3.4) K/uL [place] # (Auto) 0.93 H (0.11-0.59) K/uL Eos # (Auto) 0.00 (0-0.5) K/uL Baso # (Auto) 0.02 (0-0.2) K/uL Immature Gran # (Auto) 0.08 H (0.00-0.02) K/uL Sodium 140 (136-145) mmol/L Potassium 4.5 (3.5-5.1) mmol/L Chloride 111 H (98-107) mmol/L Carbon Dioxide 26 (21-32) mmol/L Anion Gap 3.0 (3-11) BUN 31 H (7-18) mg/dl Creatinine 0.67 (0.6-1.4) mg/dl Est Cr Clr Drug Dosing 104.5 ml/min Est GFR ( Amer) 114.4 ml/min Est GFR (Non-Af Amer) 98.7 ml/min BUN/Creatinine Ratio 46.5 H (10-20) Glucose 120 H (70-99) mg/dl Calcium 8.5 (8.5-10.1) mg/dl Magnesium 3.3 H (1.8-2.4) mg/dl Total Bilirubin 0.5 (0.2-1) mg/dl AST 40 H (15-37) U/L ALT 43 (12-78) U/L Alkaline Phosphatase 64 (45-117) U/L Total Protein 6.4 (6.4-8.2) gm/dl Albumin 2.4 L (3.4-5.0) gm/dl Globulin 4.0 (2.5-4.0) gm/dl Albumin/Globulin Ratio 0.6 L (0.9-2) PG Care Time/CCT Total # of Minutes Spent Total Time Spent with Patient: Total time spent is greater than 50% in coordination of care (as documented) at patient's floor/unit and/or counseling patient: Coding Level of Care Code 37302 Subseq Hosp Care Lvl 2 Diagnoses Pneumonia due to COVID-19 virus U07.1; J12.82 Hypoxia R09.02 Secondary bacterial pneumonia J15.9 Renal insufficiency N28.9 Transaminitis R74.01 Tobacco use disorder F17.200
[2020-12-19] MEDS: cefTRIAXone SODIUM 1,000 MG in DEXTROSE 5% 50 ML IV SCH (17:00)
[2020-12-19] MEDS: HYDROcodone/HOMATROPINE SYRUP 5MG/1.5MG 5ML UDP PO PRN ×2 (17:00→20:33)
[2020-12-19] MEDS: AZITHROMYCIN 500 MG in DEXTROSE 5% 250 ML IV SCH (17:27)
[2020-12-19] MEDS: ENOXAPARIN INJ 40 MG/0.4 ML SYR SQ SCH (19:26)
[2020-12-20] MEDS: ALBUTEROL HFA 8 GM INHALER INH SCH ×4 (07:37→19:35)
[2020-12-20] MEDS: dexAMETHasone 6 MG in SYRINGE 0 ML IV SCH (08:01)
[2020-12-20] MEDS: AZITHROMYCIN 250 MG TAB PO SCH (08:01)
[2020-12-20] MEDS: guaiFENesin 600 MG TABCR PO SCH ×2 (08:02→20:22)
[2020-12-20] MEDS: HYDROcodone/HOMATROPINE SYRUP 5MG/1.5MG 5ML UDP PO PRN ×3 (08:07→20:22)
[2020-12-20 09:15] LABS: Basophils # (auto) 0.02 K/uL (0-0.2); Basophils % (auto) 0.3 %; Eosinophils # (auto) 0.01 K/uL (0-0.5); Eosinophils % (auto) 0.1 %; Hematocrit (blood only) 40.1 % (42-52); Hemoglobin 13.6 g/dL (14.0-18.0); Immature Granulocytes # (auto) 0.13 K/uL (0.00-0.02); Immature Granulocytes % (auto) 1.7 %; Lymphocytes # (auto) 0.63 K/uL (1.2-3.4); Lymphocytes % (auto) 8.4 %; Mean Corpuscular Hemoglobin 31.9 pg (25-34); Mean Corpuscular Hgb Conc 33.9 g/dL (32-36); Mean Corpuscular Volume 93.9 fL (80-100); Mean Platelet Volume 9.7 fL (7.4-10.4); Monocytes # (auto) 0.52 K/uL (0.11-0.59); Neutrophils # (auto) 6.16 K/uL (1.4-6.5); Neutrophils % (auto) 82.5 %; Platelet Count 374 K/uL (130-400); RDW Coefficient of Variation 13.9 % (11.5-14.5); RDW Standard Deviation 47.6 fL (36.4-46.3); Red Blood Count 4.27 M/uL (4.7-6.1); White Blood Count 7.47 K/uL (4.8-10.8)
--- NOTE | 2020-12-20 09:34 | XRay Report ---
XR chest 1V portable HISTORY: COVID,worsening hypoxia COMPARISON: Chest 12/17/2020. FINDINGS: No pneumothorax. Trace left pleural effusion, unchanged. The heart is normal in size. Patch y bilateral mid to lower lung zone airspace opacities have slightly progressed. This consistent with worsening pneumonia. There is mild emphysema. IMPRESSION: Slight progression of the patchy bilateral airspace opacities consistent with a worsening pneumonia. ACT 112: Negative or not required by law. Electronically signed by: Nader Palm M.D. 12/20/2020 9:32 AM
[2020-12-20 09:40] LABS: Albumin Globulin Ratio 0.6 (0.9-2); Albumin Level 2.3 gm/dl (3.4-5.0); BUN Creatinine Ratio 28.2 (10-20); Bilirubin,Total 0.6 mg/dl (0.2-1); C Reactive Protein 8.25 mg/dl (0-0.29); Calcium 8.3 mg/dl (8.5-10.1); Creatinine Clr Calc Pharmacy 114.8 ml/min; Est GFR (African American) 118.9 ml/min; Est GFR (Non-African American) 102.6 ml/min; Globulin 4.1 gm/dl (2.5-4.0); Magnesium 2.5 mg/dl (1.8-2.4); Potassium 4.2 mmol/L (3.5-5.1); Total Protein 6.4 gm/dl (6.4-8.2)
[2020-12-20] MEDS ORDERED: TOCILIZUMAB IV ONE (10:30)
[2020-12-20] MEDS ORDERED: SODIUM CHLORIDE 0.9% IV ONE (10:30)
--- NOTE | 2020-12-20 10:47 | Hospitalist Progress Note ---
Date of Service December 20, 2020 Assessment & Plan (1) Pneumonia due to COVID-19 virus: Plan: Pneumonia due to COVID-19 virus/secondary bacterial pneumonia/hypoxia- Symptoms present for least 2 weeks and now worsening. Was requiring 2L on admission, then 5L, now on 12/20 up to HFNC 35L, 70%FiO2 for POx in low 80s on 15L O2 Still coughing but improved, not in resp distress CXR progressive infilatraes on 12/20 Is now willing to try proning after requiring HFNC and had discussion of possibility of intubation if not improving CRP 8.5, requiring HFNC and witin 72 hrs of admission, no contraindications to Tocilizumab-discussed with Dr. Sigala and Marlene of Pharmacy--> give one dose Toci on 12/20. Discussed with patient Continue dexamethasone 6 mg IV daily Continue Mucinex every 12h Albuterol HFA 2 puffs 4 times daily and alb neb q2h prn -continue prone positioning as often as possible -Continue on incentive spirometer and flutter valve has been on abx for secondary bacterial pneumonia since admission- continue ceftriaxone 1 g IV daily (last dose on 12/23) and azithromycin 250 mg p.o. daily- last dose on 12/21 -check BNP and Procal today Continue Hycodan syrup 5 mils p.o. every 4 hours as needed for cough -Continue supplemental O2 and wean off as able to Given rounded opacity in left lower lung which could represent atelectasis versus pneumonia, radiology recommends repeat CT chest in 3 months to ensure resolution (2) Hypoxia: Plan: See above (3) Secondary bacterial pneumonia: Plan: See above x-ray and CT showed left lower lobe consolidation Treating with antibiotics Repeat imaging with chest CT in 3 months as above check Procal and consider de-escalating abx if neg as per PULM recommendation (4) Renal insufficiency: Plan: Creatinine 1.4 upon admission, with unknown baseline. Now improved down to normal No fluids needed (5) Transaminitis: Plan: AST 75 upon admission. Almost completely back to normal now Likely secondary to COVID-19 infection (6) Tobacco use disorder: Plan: Cessation counseling NicoDerm patch if required Plan: DVT prophylaxis Lovenox SQ Disposition-continued stay on PCU Discussed his care with his who is also admitted to hospital in room next door Admission and Anticipated Discharge Date Admission Date: December 17, 2020 Subjective Pt desatted to low 80s today and now requiring HFNC 35L, 70% FiO2 to keep POx>88%. He thinks his cough is better, does not feel SOB. He denies abd pain or nausea, no diarrhea. Discussed his care with PULM and Pharmacy regarding tocilizumab administration Tele with NSR rate 50-70s Review of Systems Review of Systems: All systems reviewed & are unremarkable except as noted in HPI & below Physical Exam Constitutional: WD/WN, vitals as above Eyes: + anicteric sclerae Neck: trachea midline, no thyromegaly Respiratory: normal respiratory effort Auscultation: + diminished lung sounds (Diminished throughout) and + crackles (at bilat lower and mid lung motta); no rhonchi and no wheezes Cardiovascular: RRR, no murmur, no edema Chest (Breasts): Chest: normal inspection of chest Gastrointestinal (Abdomen): normal bowel sounds, soft, nontender, no h epatosplenomegaly Musculoskeletal: Extremities: extremities normal to inspection; no cyanosis and no clubbing Skin: no rashes, warm and dry Neurologic: moves all extremities and awake; no focal motor deficits Psychiatric: A+Ox3, euthymic affect Lymphatic: no lymphedema Results & Data Results & Data ([facility]) Vital Signs (Past 12 Hours) Vital Signs Temp Pulse Pulse Pulse Resp BP Pulse Ox 12/20/20 08:26 78 20 93 12/20/20 07:59 37.2 C 76 16 122/65 88 L 12/20/20 07:46 82 20 83 L 12/20/20 07:18 72 12/20/20 04:00 37.0 C 73 19 116/65 91 12/20/20 00:03 36.8 C 57 L 18 95 Laboratory Results 12/20/20 12/20/20 12/20/20 Range/Units 10:20 10:20 09:05 WBC 7.47 (4.8-10.8) K/uL RBC 4.27 L (4.7-6.1) M/uL Hgb 13.6 L (14.0-18.0) g/dL Hct 40.1 L (42-52) % MCV 93.9 (80-100) fL MCH 31.9 (25-34) pg MCHC 33.9 (32-36) g/dL RDW Std Deviation 47.6 H (36.4-46.3) fL RDW Coeff of Pal 13.9 (11.5-14.5) % Plt Count 374 (130-400) K/uL MPV 9.7 (7.4-10.4) fL Immature Gran % (Auto) 1.7 % Neut % (Auto) 82.5 % Lymph % (Auto) 8.4 % [place] % (Auto) 7.0 % Eos % (Auto) 0.1 % Baso % (Auto) 0.3 % Neut # (Auto) 6.16 (1.4-6.5) K/uL Lymph # (Auto) 0.63 L (1.2-3.4) K/uL [place] # (Auto) 0.52 (0.11-0.59) K/uL Eos # (Auto) 0.01 (0-0.5) K/uL Baso # (Auto) 0.02 (0-0.2) K/uL Immature Gran # (Auto) 0.13 H (0.00-0.02) K/uL Sodium (136-145) mmol/L Potassium (3.5-5.1) mmol/L Chloride (98-107) mmol/L Carbon Dioxide (21-32) mmol/L Anion Gap (3-11) BUN (7-18) mg/dl Creatinine (0.6-1.4) mg/dl Est Cr Clr Drug Dosing ml/min Est GFR ( Amer) ml/min Est GFR (Non-Af Amer) ml/min BUN/Creatinine Ratio (10-20) Glucose (70-99) mg/dl Calcium (8.5-10.1) mg/dl Magnesium (1.8-2.4) mg/dl Total Bilirubin (0.2-1) mg/dl AST (15-37) U/L ALT (12-78) U/L Alkaline Phosphatase (45-117) U/L C-Reactive Protein (0-0.29) mg/dl NT-Pro-B Natriuret Pep Pending Total Protein (6.4-8.2) gm/dl Albumin (3.4-5.0) gm/dl Globulin (2.5-4.0) gm/dl Albumin/Globulin Ratio (0.9-2) Procalcitonin Pending 12/20/20 Range/Units 09:05 WBC (4.8-10.8) K/uL RBC (4.7-6.1) M/uL Hgb (14.0-18.0) g/dL Hct (42-52) % MCV (80-100) fL MCH (25-34) pg MCHC (32-36) g/dL RDW Std Deviation (36.4-46.3) fL RDW Coeff of Pal (11.5-14.5) % Plt Count (130-400) K/uL MPV (7.4-10.4) fL Immature Gran % (Auto) % Neut % (Auto) % Lymph % (Auto) % [place] % (Auto) % Eos % (Auto) % Baso % (Auto) % Neut # (Auto) (1.4-6.5) K/uL Lymph # (Auto) (1.2-3.4) K/uL [place] # (Auto) (0.11-0.59) K/uL Eos # (Auto) (0-0.5) K/uL Baso # (Auto) (0-0.2) K/uL Immature Gran # (Auto) (0.00-0.02) K/uL Sodium 139 (136-145) mmol/L Potassium 4.2 (3.5-5.1) mmol/L Chloride 108 H (98-107) mmol/L Carbon Dioxide 28 (21-32) mmol/L Anion Gap 3.0 (3-11) BUN 17 (7-18) mg/dl Creatinine 0.61 (0.6-1.4) mg/dl Est Cr Clr Drug Dosing 114.8 ml/min Est GFR ( Amer) 118.9 ml/min Est GFR (Non-Af Amer) 102.6 ml/min BUN/Creatinine Ratio 28.2 H (10-20) Glucose 97 (70-99) mg/dl Calcium 8.3 L (8.5-10.1) mg/dl Magnesium 2.5 H (1.8-2.4) mg/dl Total Bilirubin 0.6 (0.2-1) mg/dl AST 34 (15-37) U/L ALT 39 (12-78) U/L Alkaline Phosphatase 65 (45-117) U/L C-Reactive Protein 8.25 H (0-0.29) mg/dl NT-Pro-B Natriuret Pep Total Protein 6.4 (6.4-8.2) gm/dl Albumin 2.3 L (3.4-5.0) gm/dl Globulin 4.1 H (2.5-4.0) gm/dl Albumin/Globulin Ratio 0.6 L (0.9-2) Procalcitonin PG Care Time/CCT Total # of Minutes Spent Total Time Spent with Patient: Total time spent is greater than 50% in coordination of care (as documented) at patient's floor/unit and/or counseling patient: Coding Level of Care Code 00193 Subseq Hosp Care Lvl 3 Diagnoses Pneumonia due to COVID-19 virus U07.1; J12.82 Hypoxia R09.02 Secondary bacterial pneumonia J15.9 Renal insufficiency N28.9 Transaminitis R74.01 Tobacco use disorder F17.200
[2020-12-20] MEDS: cefTRIAXone SODIUM 1,000 MG in DEXTROSE 5% 50 ML IV SCH (16:53)
[2020-12-20] MEDS: ENOXAPARIN INJ 40 MG/0.4 ML SYR SQ SCH (20:22)
[2020-12-21] MEDS: HYDROcodone/HOMATROPINE SYRUP 5MG/1.5MG 5ML UDP PO PRN ×3 (00:01→08:29)
[2020-12-21 07:02] LABS: Hemoglobin 13.4 g/dL (14.0-18.0); Mean Corpuscular Hemoglobin 31.5 pg (25-34); Mean Corpuscular Hgb Conc 33.5 g/dL (32-36); Mean Corpuscular Volume 93.9 fL (80-100); Mean Platelet Volume 9.8 fL (7.4-10.4); Platelet Count 426 K/uL (130-400); RDW Coefficient of Variation 14.1 % (11.5-14.5); RDW Standard Deviation 48.1 fL (36.4-46.3); Red Blood Count 4.26 M/uL (4.7-6.1); White Blood Count 6.26 K/uL (4.8-10.8)
[2020-12-21 07:18] LABS: Basophils # (auto) 0.02 K/uL (0-0.2); Basophils % (auto) 0.3 %; Echinocytes 1+; Eosinophils # (auto) 0.02 K/uL (0-0.5); Eosinophils % (auto) 0.3 %; Immature Granulocytes # (auto) 0.15 K/uL (0.00-0.02); Immature Granulocytes % (auto) 2.4 %; Lymphocytes # (auto) 1.12 K/uL (1.2-3.4); Lymphocytes % (auto) 17.9 %; Monocytes # (auto) 0.51 K/uL (0.11-0.59); Monocytes % (auto) 8.1 %; Neutrophils # (auto) 4.44 K/uL (1.4-6.5)
[2020-12-21 07:34] LABS: Albumin Level 2.3 gm/dl (3.4-5.0); BUN Creatinine Ratio 33.2 (10-20); Calcium 8.4 mg/dl (8.5-10.1); Creatinine Clr Calc Pharmacy 142.9 ml/min; Est GFR (African American) 130.1 ml/min; Est GFR (Non-African American) 112.3 ml/min; Potassium 4.3 mmol/L (3.5-5.1)
[2020-12-21 07:35] LABS: Albumin Globulin Ratio 0.5 (0.9-2); Bilirubin,Total 0.5 mg/dl (0.2-1); C Reactive Protein 11.2 mg/dl (0-0.29); Globulin 4.2 gm/dl (2.5-4.0); Total Protein 6.5 gm/dl (6.4-8.2)
[2020-12-21] MEDS: ALBUTEROL HFA 8 GM INHALER INH SCH ×4 (07:48→19:18)
[2020-12-21] MEDS: guaiFENesin 600 MG TABCR PO SCH ×2 (08:30→21:20)
[2020-12-21] MEDS: AZITHROMYCIN 250 MG TAB PO SCH (08:30)
[2020-12-21] MEDS: dexAMETHasone 6 MG in SYRINGE 0 ML IV SCH (08:30)
--- NOTE | 2020-12-21 10:03 | Hospitalist Progress Note ---
Date of Service December 21, 2020 Assessment & Plan (1) Pneumonia due to COVID-19 virus: Plan: Pneumonia due to COVID-19 virus/secondary bacterial pneumonia/hypoxia- Symptoms present for least 2 weeks, slowly worsening Was requiring 2L on admission, then 5L, then on 12/20 up to HFNC 35L, 70%FiO2 Still coughing but improved, not in resp distress CXR progressive infilatraes on 12/20 got Tocilizumab on 12/20 encourage prone positioning as often as possible, he is more compliant down to 35L and 50% this morning, slightly improvement from yesterday Continue dexamethasone 6 mg IV daily for 10 days Continue Mucinex every 12h Albuterol HFA 2 puffs 4 times daily and alb neb q2h prn -Continue on incentive spirometer and flutter valve has been on abx for secondary bacterial pneumonia since admission- continue ceftriaxone 1 g IV daily (last dose on 12/23) and azithromycin 250 mg p.o. daily- last dose on 12/21 Continue Hycodan syrup 5 mils p.o. every 4 hours as needed for cough Given rounded opacity in left lower lung which could represent atelectasis versus pneumonia, radiology recommends repeat CT chest in 3 months to ensure resolution (2) Hypoxia: Plan: acute hypoxic respiratory failure from COVID 19 pneumonia try to wean as tolerated, treatment for COVID above down a little today at 35L and 50% (3) Secondary bacterial pneumonia: Plan: See above x-ray and CT showed left lower lobe consolidation Treating with antibiotics, Rocephin until 12/23 and Zithromax until 12/21, today Repeat imaging with chest CT in 3 months as above (4) Renal insufficiency: Plan: Creatinine 1.4 upon admission, with unknown baseline. Now improved down to normal No fluids needed eating and drinking sufficient although not great (5) Transaminitis: Plan: AST 75 upon admission. Almost completely back to normal now Likely secondary to COVID-19 infection (6) Tobacco use disorder: Plan: Cessation counseling NicoDerm patch if required Plan: DVT prophylaxis Lovenox SQ Disposition-continued stay on PCU Discussed his care with his who is also admitted to hospital in room next door Admission and Anticipated Discharge Date Admission Date: December 17, 2020 Subjective patient doing well, sitting up at the bedside, was laying prone all morning ate a little bit for breakfast, appetite is coming back slowly he is constipated, no diarrhea + cough and dyspnea at rest as well as on exertion no chest pain, no fever, no sweats he asked about how long he will be here, told him to expect to be here the rest of the week at a minimum he is frustrated, says he wishes he got the COVID shot reviewed labs, Cr and electrolytes stable, CBC stable Review of Systems Review of Systems: All systems reviewed & are unremarkable except as noted in Subjective Physical Exam Constitutional: well developed, well nourished, + ill appearing and comfortable; no acute distress Neck: trachea midline, no thyromegaly Respiratory: + cough and + tachypneic; no respiratory distress, no labored breathing and does not use accessory muscles Auscultation: lungs clear to auscultation bilaterally; no crackles, no rales, no rhonchi and no wheezes Cardiovascular: RRR, no murmur, no edema Gastrointestinal (Abdomen): normal bowel sounds, soft, nontender, no hepatosplenomegaly Musculoskeletal: no cyanosis or clubbing, extremities motor strength 5/5 Skin: no rashes, warm and dry Neurologic: patellar DTR's 2+ bilat, sensation intact and PERRL, EOMI, accommodation nl, no face palsy, no dysarthria Psychiatric: A+Ox3, euthymic affect Results & Data Results & Data ([facility]) Vital Signs (Past 12 Hours) Vital Signs Temp Pulse Pulse Pulse Resp BP Pulse Ox 12/21/20 08:57 75 12/21/20 08:48 61 12/21/20 08:00 36.3 C L 68 22 112/66 91 12/21/20 07:51 85 19 92 12/21/20 07:49 85 19 92 12/21/20 04:04 36.6 C 64 21 116/70 95 12/20/20 23:59 36.5 C 65 21 12/20/20 23:39 50 L 12/20/20 22:37 51 L 20 96 Laboratory Results Laboratory Results - last 24 hr 12/20/20 12/20/20 12/21/20 10:20 10:20 06:23 WBC 6.26 RBC 4.26 L Hgb 13.4 L Hct 40.0 L MCV 93.9 MCH 31.5 MCHC 33.5 RDW Std Deviation 48.1 H RDW Coeff of Pal 14.1 Plt Count 426 H MPV 9.8 Immature Gran % (Auto) 2.4 Neut % (Auto) 71.0 Lymph % (Auto) 17.9 [place] % (Auto) 8.1 Eos % (Auto) 0.3 Baso % (Auto) 0.3 Neut # (Auto) 4.44 Lymph # (Auto) 1.12 L [place] # (Auto) 0.51 Eos # (Auto) 0.02 Baso # (Auto) 0.02 Immature Gran # (Auto) 0.15 H Echinocytes 1+ Sodium Potassium Chloride Carbon Dioxide Anion Gap BUN Creatinine Est Cr Clr Drug Dosing Est GFR ( Amer) Est GFR (Non-Af Amer) BUN/Creatinine Ratio Glucose Calcium Total Bilirubin AST ALT Alkaline Phosphatase C-Reactive Protein NT-Pro-B Natriuret Pep 740 Total Protein Albumin Globulin Albumin/Globulin Ratio Procalcitonin 0.06 12/21/20 06:23 WBC RBC Hgb Hct MCV MCH MCHC RDW Std Deviation RDW Coeff of Pal Plt Count MPV Immature Gran % (Auto) Neut % (Auto) Lymph % (Auto) [place] % (Auto) Eos % (Auto) Baso % (Auto) Neut # (Auto) Lymph # (Auto) [place] # (Auto) Eos # (Auto) Baso # (Auto) Immature Gran # (Auto) Echinocytes Sodium 137 Potassium 4.3 Chloride 106 Carbon Dioxide 28 Anion Gap 3.0 BUN 16 Creatinine 0.49 L Est Cr Clr Drug Dosing 142.9 Est GFR ( Amer) 130.1 Est GFR (Non-Af Amer) 112.3 BUN/Creatinine Ratio 33.2 H Glucose 99 Calcium 8.4 L Total Bilirubin 0.5 AST 28 ALT 33 Alkaline Phosphatase 64 C-Reactive Protein 11.20 H NT-Pro-B Natriuret Pep Total Protein 6.5 Albumin 2.3 L Globulin 4.2 H Albumin/Globulin Ratio 0.5 L Procalcitonin Medications Administered Current Inpatient Medications Acetaminophen (Acetaminophen 325 Mg Tab) 650 mg PO Q4H PRN PRN Reason: Pain or Fever Stop: 01/16/21 15:34 Last Admin: 12/20/20 08:01 Dose: 650 mg Documented by: Albuterol (Albut/Ipratrop 3mg/0.5mg Neb 3 Ml Vial) 3 ml NEB Q2H PRN PRN Reason: dyspnea Stop: 01/16/21 15:34 Albuterol (Albuterol Hfa 8 Gm Inhaler) 2 puffs INH QIDR [facility]; Protocol Stop: 01/16/21 15:34 Last Admin: 12/21/20 07:48 Dose: 2 puffs Documented by: Azithromycin (Azithromycin 250 Mg Tab) 250 mg PO QAM [facility]; Protocol Stop: 12/23/20 23:59 Last Admin: 12/21/20 08:30 Dose: 250 mg Documented by: Enoxaparin Sodium (Enoxaparin Inj 40 Mg/0.4 Ml Syr) 40 mg SQ Q24H [facility] Stop: 01/16/21 20:59 Last Admin: 12/20/20 20:22 Dose: 40 mg Documented by: Guaifenesin (Guaifenesin 600 Mg Tabcr) 1,200 mg PO Q12 [facility] Stop: 01/16/21 20:59 Last Admin: 12/21/20 08:30 Dose: 1,200 mg Documented by: Hydrocodone Bit/Homatropine Methylb (Hydrocodone/Homatropine Syrup 5mg/1.5mg 5ml Udp) 5 ml PO Q4H PRN PRN Reason: Cough Stop: 12/31/20 15:34 Last Admin: 12/21/20 08:29 Dose: 5 ml Documented by: Dexamethasone 6 mg/ Syringe 1.5 mls @ 1 mls/min IV Q24H [facility] Stop: 01/17/21 08:59 Last Admin: 12/21/20 08:30 Dose: 1 mls/min Documented by: Ceftriaxone Sodium 1,000 mg/ (Dextrose) 50 mls @ 100 mls/hr IV Q24H [facility]; Protocol Stop: 12/24/20 15:59 Last Infusion: 12/20/20 17:27 Dose: Infused Documented by: Ondansetron HCl (Ondansetron Inj 2 Mg/Ml 2 Ml Vial) 4 mg IV Q6H PRN PRN Reason: Nausea Stop: 01/16/21 15:34 PG Care Time/CCT Total # of Minutes Spent Total Time Spent with Patient: Total time spent is greater than 50% in coordination of care (as documented) at patient's floor/unit and/or counseling patient: Coding Level of Care Code 83466 Subseq Hosp Care Lvl 3 Diagnoses Pneumonia due to COVID-19 virus U07.1; J12.82 Hypoxia R09.02 Secondary bacterial pneumonia J15.9 Renal insufficiency N28.9 Transaminitis R74.01 Tobacco use disorder F17.200
[2020-12-21] MEDS: HYDROcodone/HOMATROPINE SYRUP 5MG/1.5MG 5ML UDP PO SCH ×4 (12:12→23:08)
[2020-12-21] MEDS: cefTRIAXone SODIUM 1,000 MG in DEXTROSE 5% 50 ML IV SCH (15:53)
[2020-12-21] MEDS: ENOXAPARIN INJ 40 MG/0.4 ML SYR SQ SCH (21:21)
[2020-12-22] MEDS: HYDROcodone/HOMATROPINE SYRUP 5MG/1.5MG 5ML UDP PO SCH ×6 (03:14→23:01)
[2020-12-22] MEDS: ALBUTEROL HFA 8 GM INHALER INH SCH (07:22)
--- NOTE | 2020-12-22 07:29 | Hospitalist Progress Note ---
Date of Service December 22, 2020 Assessment & Plan (1) Pneumonia due to COVID-19 virus: Plan: Pneumonia due to COVID-19 virus/secondary bacterial pneumonia/hypoxia- Symptoms present for least 2 weeks, slowly worsening Was requiring 2L on admission, then 5L, then on 12/20 up to HFNC 35L, 70%FiO2 CXR progressive infiltrates on 12/20 got Tocilizumab on 12/20 encourage prone positioning as often as possible, he is more compliant great response since 12/20, today he is down to 6L nasal canula, breathing easier Continue dexamethasone 6 mg IV daily for 10 days Continue Mucinex every 12h Albuterol HFA 2 puffs 4 times daily and alb neb q2h prn -Continue on incentive spirometer and flutter valve has been on abx for secondary bacterial pneumonia since admission- continue ceftriaxone 1 g IV daily (last dose on 12/23) and azithromycin 250 mg p.o. daily- last dose on 12/21 Continue Hycodan syrup 5 mils p.o. every 4 hours as needed for cough Given rounded opacity in left lower lung which could represent atelectasis versus pneumonia, radiology recommends repeat CT chest in 3 months to ensure resolution (2) Hypoxia: Plan: acute hypoxic respiratory failure from COVID 19 pneumonia try to wean as tolerated, treatment for COVID above requirements down a lot today, 6L NC, no distress (3) Secondary bacterial pneumonia: Plan: See above x-ray and CT showed left lower lobe consolidation Treating with antibiotics, Rocephin until 12/23 and Zithromax until 12/21, today Repeat imaging with chest CT in 3 months as above (4) Renal insufficiency: Plan: Creatinine 1.4 upon admission, with unknown baseline. Now improved down to normal No fluids needed eating and drinking sufficient although not great (5) Transaminitis: Plan: AST 75 upon admission. Almost completely back to normal now Likely secondary to COVID-19 infection (6) Tobacco use disorder: Plan: Cessation counseling NicoDerm patch if required Plan: DVT prophylaxis Lovenox SQ Disposition-continued stay on PCU Discussed his care with his who is also admitted to hospital in room next door Admission and Anticipated Discharge Date Admission Date: December 17, 2020 Subjective patient doing a lot better today, down to 6L from Vapotherm 35L and 50% yesterday breathing easier, coughing less eating a little more today, no nausea, still no BM today no chest pain, no fever he continues to try to lay on his stomach he says he feels so good he wants to go home, discussed that he is on too much oxygen Review of Systems Review of Systems: All systems reviewed & are unremarkable except as noted in Subjective Respiratory: + cough, + dyspnea and + dyspnea on exertion Physical Exam Constitutional: well developed, well nourished, + ill appearing and comfortable; no acute distress Neck: trachea midline, no thyromegaly Respiratory: + cough; no respiratory distress, no labored breathing and does not use accessory muscles Auscultation: lungs clear to auscultation bilaterally; no crackles, no rales, no rhonchi and no wheezes Cardiovascular: RRR, no murmur, no edema Gastrointestinal (Abdomen): normal bowel sounds, soft, nontender, no hepatosplenomegaly Musculoskeletal: no cyanosis or clubbing, extremities motor strength 5/5 Skin: no rashes, warm and dry Neurologic: patellar DTR's 2+ bilat, sensation intact and PERRL, EOMI, accommodation nl, no face palsy, no dysarthria Psychiatric: A+Ox3, euthymic affect Results & Data Results & Data ([facility]) Vital Signs (Past 12 Hours) Vital Signs Temp Pulse Pulse Pulse Resp BP BP 12/22/20 07:25 36.6 C 65 20 120/66 12/22/20 07:23 55 L 16 12/22/20 04:27 12/22/20 03:11 36.4 C L 63 12 131/72 12/22/20 00:31 12/21/20 23:56 12/21/20 23:01 36.5 C 61 18 130/69 12/21/20 23:00 58 L 12/21/20 22:20 55 L 15 12/21/20 19:42 36.5 C 60 115/70 Pulse Ox 12/22/20 07:25 97 12/22/20 07:23 97 12/22/20 04:27 92 12/22/20 03:11 96 12/22/20 00:31 100 12/21/20 23:56 99 12/21/20 23:01 93 12/21/20 23:00 12/21/20 22:20 95 12/21/20 19:42 92 Medications Administered Current Inpatient Medications Acetaminophen (Acetaminophen 325 Mg Tab) 650 mg PO Q4H PRN PRN Reason: Pain or Fever Stop: 01/16/21 15:34 Last Admin: 12/20/20 08:01 Dose: 650 mg Documented by: Albuterol (Albut/Ipratrop 3mg/0.5mg Neb 3 Ml Vial) 3 ml NEB Q2H PRN PRN Reason: dyspnea Stop: 01/16/21 15:34 Albuterol (Albuterol Hfa 8 Gm Inhaler) 2 puffs INH QIDR [facility]; Protocol Stop: 01/16/21 15:34 Last Admin: 12/22/20 07:22 Dose: 2 puffs Documented by: Azithromycin (Azithromycin 250 Mg Tab) 250 mg PO QAM [facility]; Protocol Stop: 12/23/20 23:59 Last Admin: 12/21/20 08:30 Dose: 250 mg Documented by: Enoxaparin Sodium (Enoxaparin Inj 40 Mg/0.4 Ml Syr) 40 mg SQ Q24H [facility] Stop: 01/16/21 20:59 Last Admin: 12/21/20 21:21 Dose: 40 mg Documented by: Guaifenesin (Guaifenesin 600 Mg Tabcr) 1,200 mg PO Q12 [facility] Stop: 01/16/21 20:59 Last Admin: 12/21/20 21:20 Dose: 1,200 mg Documented by: Hydrocodone Bit/Homatropine Methylb (Hydrocodone/Homatropine Syrup 5mg/1.5mg 5ml Udp) 5 ml PO Q4H [facility] Stop: 01/04/21 10:59 Last Admin: 12/22/20 06:21 Dose: 5 ml Documented by: Dexamethasone 6 mg/ Syringe 1.5 mls @ 1 mls/min IV Q24H [facility] Stop: 01/17/21 08:59 Last Admin: 12/21/20 08:30 Dose: 1 mls/min Documented by: Ceftriaxone Sodium 1,000 mg/ (Dextrose) 50 mls @ 100 mls/hr IV Q24H [facility]; Protocol Stop: 12/24/20 15:59 Last Infusion: 12/21/20 16:40 Dose: Infused Documented by: Ondansetron HCl (Ondansetron Inj 2 Mg/Ml 2 Ml Vial) 4 mg IV Q6H PRN PRN Reason: Nausea Stop: 01/16/21 15:34 PG Care Time/CCT Total # of Minutes Spent Total Time Spent with Patient: Total time spent is greater than 50% in cooling tower technician rdination of care (as documented) at patient's floor/unit and/or counseling patient: Coding Level of Care Code 78973 Subseq Hosp Care Lvl 2 Diagnoses Pneumonia due to COVID-19 virus U07.1; J12.82 Hypoxia R09.02 Secondary bacterial pneumonia J15.9 Renal insufficiency N28.9 Transaminitis R74.01 Tobacco use disorder F17.200
[2020-12-22] MEDS: guaiFENesin 600 MG TABCR PO SCH ×2 (08:24→20:15)
[2020-12-22] MEDS: AZITHROMYCIN 250 MG TAB PO SCH (08:24)
[2020-12-22] MEDS: dexAMETHasone 6 MG in SYRINGE 0 ML IV SCH (08:24)
[2020-12-22] MEDS ORDERED: ALBUTEROL HFA 8 GM INHALER INH PRN (09:35)
[2020-12-22] MEDS: cefTRIAXone SODIUM 1,000 MG in DEXTROSE 5% 50 ML IV SCH (15:49)
[2020-12-22] MEDS: ENOXAPARIN INJ 40 MG/0.4 ML SYR SQ SCH (20:15)
[2020-12-23] MEDS: HYDROcodone/HOMATROPINE SYRUP 5MG/1.5MG 5ML UDP PO SCH ×6 (03:22→23:56)
[2020-12-23] MEDS: AZITHROMYCIN 250 MG TAB PO SCH (08:19)
[2020-12-23] MEDS: guaiFENesin 600 MG TABCR PO SCH ×2 (08:19→20:52)
[2020-12-23] MEDS: dexAMETHasone 6 MG in SYRINGE 0 ML IV SCH (08:19)
--- NOTE | 2020-12-23 10:03 | Hospitalist Progress Note ---
Date of Service December 23, 2020 Assessment & Plan (1) Pneumonia due to COVID-19 virus: Plan: Pneumonia due to COVID-19 virus/secondary bacterial pneumonia/hypoxia- Symptoms present for least 2 weeks, slowly worsening Was requiring 2L on admission, then 5L, then on 12/20 up to HFNC 35L, 70%FiO2 CXR progressive infiltrates on 12/20 got Tocilizumab on 12/20 encourage prone positioning as often as possible, he is more compliant great response since 12/20, down to 15L wall high flow today repeat labs and get portable CXR, consider dose of Lasix 20mg IV Continue dexamethasone 6 mg IV daily for 10 days, day 7 today Continue Mucinex every 12h Albuterol HFA 2 puffs 4 times daily and alb neb q2h prn -Continue on incentive spirometer and flutter valve has been on abx for secondary bacterial pneumonia since admission- continue ceftriaxone 1 g IV daily (last dose on 12/23) and azithromycin 250 mg p.o. daily- last dose on 12/21 Continue Hycodan syrup 5 mils p.o. every 4 hours as needed for cough Given rounded opacity in left lower lung which could represent atelectasis versus pneumonia, radiology recommends repeat CT chest in 3 months to ensure resolution (2) Hypoxia: Plan: acute hypoxic respiratory failure from COVID 19 pneumonia try to wean as tolerated, treatment for COVID above requirements down a lot on 12/22, 6L today he is back up to 15L, reminded him to lay prone will get CXR and BNP, might benefit from dose of Lasix (3) Secondary bacterial pneumonia: Plan: See above x-ray and CT showed left lower lobe consolidation Treating with antibiotics, Rocephin until 12/23 and Zithromax until 12/21, today Repeat imaging with chest CT in 3 months as above (4) Renal insufficiency: Plan: Creatinine 1.4 upon admission, with unknown baseline. Now improved down to normal No fluids needed eating and drinking sufficient although not great check BMP, consider a dose of Lasix (5) Transaminitis: Plan: AST 75 upon admission. Almost completely back to normal now Likely secondary to COVID-19 infection (6) Tobacco use disorder: Plan: Cessation counseling NicoDerm patch if required Plan: DVT prophylaxis Lovenox SQ Disposition-continued stay on PCU Discussed his care with his who is also admitted to hospital in room next door Admission and Anticipated Discharge Date Admission Date: December 17, 2020 Subjective patient desaturated to 86% after walking to toilet, on the high flow d/w respiratory care, air was not humidified, nares very dry changed to oxymask, tolerated well, no distress, now back on wall high flow 15L he is frustrated about being here, got tearful, just wants to go home explained that he needs to be patient, cannot get worked up, take it one day at a time needs to lay on his stomach this morning, will get a CXR, consider Lasix, get labs he is happy to hear that his is going home he admits to dyspnea and dyspnea on exertion, minimal coughing, no chest pain, no fever he is eating much better, no BM, will try Miralax Review of Systems Review of Systems: All systems reviewed & are unremarkable except as noted in Subjective Physical Exam Constitutional: well developed, well nourished, + ill appearing and comfortable; no acute distress Neck: trachea midline, no thyromegaly Respiratory: + cough; no respiratory distress, no labored breathing and does not use accessory muscles Auscultation: lungs clear to auscultation bilaterally; no crackles, no rales, no rhonchi and no wheezes Cardiovascular: RRR, no murmur, no edema Gastrointestinal (Abdomen): normal bowel sounds, soft, nontender, no hepa tosplenomegaly Musculoskeletal: no cyanosis or clubbing, extremities motor strength 5/5 Skin: no rashes, warm and dry Neurologic: patellar DTR's 2+ bilat, sensation intact and PERRL, EOMI, accommodation nl, no face palsy, no dysarthria Psychiatric: A+Ox3, euthymic affect Results & Data Results & Data ([facility]) Vital Signs (Past 12 Hours) Vital Signs Temp Pulse Pulse Pulse Resp BP BP 12/23/20 08:27 53 L 12/23/20 07:27 36.4 C L 67 14 123/74 12/23/20 03:23 36.5 C 50 L 12 118/62 12/22/20 22:56 36.8 C 65 17 118/59 L 12/22/20 22:20 55 L Pulse Ox 12/23/20 08:27 12/23/20 07:27 90 08/18/21 03:23 94 12/22/20 22:56 98 12/22/20 22:20 Medications Administered Current Inpatient Medications Acetaminophen (Acetaminophen 325 Mg Tab) 650 mg PO Q4H PRN PRN Reason: Pain or Fever Stop: 01/16/21 15:34 Last Admin: 12/20/20 08:01 Dose: 650 mg Documented by: Albuterol (Albut/Ipratrop 3mg/0.5mg Neb 3 Ml Vial) 3 ml NEB Q2H PRN PRN Reason: dyspnea Stop: 01/16/21 15:34 Albuterol (Albuterol Hfa 8 Gm Inhaler) 2 puffs INH Q4R PRN; Protocol PRN Reason: Shortness Of Breath Or Wheezin Stop: 01/21/21 09:33 Azithromycin (Azithromycin 250 Mg Tab) 250 mg PO QAM AVINASH; Protocol Stop: 12/23/20 23:59 Last Admin: 12/23/20 08:19 Dose: 250 mg Documented by: Enoxaparin Sodium (Enoxaparin Inj 40 Mg/0.4 Ml Syr) 40 mg SQ Q24H AVINASH Stop: 01/16/21 20:59 Last Admin: 12/22/20 20:15 Dose: 40 mg Documented by: Guaifenesin (Guaifenesin 600 Mg Tabcr) 1,200 mg PO Q12 AVINASH Stop: 01/16/21 20:59 Last Admin: 12/23/20 08:19 Dose: 1,200 mg Documented by: Hydrocodone Bit/Homatropine Methylb (Hydrocodone/Homatropine Syrup 5mg/1.5mg 5ml Udp) 5 ml PO Q4H AVINASH Stop: 01/04/21 10:59 Last Admin: 12/23/20 06:30 Dose: 5 ml Documented by: Dexamethasone 6 mg/ Syringe 1.5 mls @ 1 mls/min IV Q24H AVINASH Stop: 01/17/21 08:59 Last Admin: 12/23/20 08:19 Dose: 1 mls/min Documented by: Ceftriaxone Sodium 1,000 mg/ (Dextrose) 50 mls @ 100 mls/hr IV Q24H AVINASH; Protocol Stop: 12/24/20 15:59 Last Infusion: 12/22/20 16:21 Dose: Infused Documented by: Ondansetron HCl (Ondansetron Inj 2 Mg/Ml 2 Ml Vial) 4 mg IV Q6H PRN PRN Reason: Nausea Stop: 01/16/21 15:34 Polyethylene Glycol (Polyethylene (Miralax) 17 Gm Pack) 17 gm PO DAILY AVINASH Stop: 01/22/21 10:14 PG Care Time/CCT Total # of Minutes Spent Total Time Spent with Patient: Total time spent is greater than 50% in coordination of care (as documented) at patient's floor/unit and/or counseling patient: Coding Level of Care Code 62116 Subseq Hosp Care Lvl 3 Diagnoses Pneumonia due to COVID-19 virus U07.1; J12.82 Hypoxia R09.02 Secondary bacterial pneumonia J15.9 Renal insufficiency N28.9 Transaminitis R74.01 Tobacco use disorder F17.200
[2020-12-23] MEDS ORDERED: POLYETHYLENE (MIRALAX) 17 GM PACK PO ONE (10:15)
[2020-12-23 10:31] LABS: Hematocrit (blood only) 44.3 % (42-52); Hemoglobin 14.9 g/dL (14.0-18.0); Mean Corpuscular Hemoglobin 31.8 pg (25-34); Mean Corpuscular Hgb Conc 33.6 g/dL (32-36); Mean Corpuscular Volume 94.7 fL (80-100); Mean Platelet Volume 9.5 fL (7.4-10.4); Platelet Count 463 K/uL (130-400); RDW Coefficient of Variation 13.8 % (11.5-14.5); RDW Standard Deviation 47.3 fL (36.4-46.3); Red Blood Count 4.68 M/uL (4.7-6.1); White Blood Count 9.77 K/uL (4.8-10.8)
[2020-12-23 10:52] LABS: BUN Creatinine Ratio 23.7 (10-20); Calcium 8.7 mg/dl (8.5-10.1); Creatinine Clr Calc Pharmacy 93.3 ml/min; Est GFR (African American) 109.2 ml/min; Est GFR (Non-African American) 94.3 ml/min; Potassium 4.1 mmol/L (3.5-5.1)
[2020-12-23 10:57] LABS: C Reactive Protein 1.4 mg/dl (0-0.29)
--- NOTE | 2020-12-23 11:45 | XRay Report ---
SINGLE VIEW CHEST CLINICAL HISTORY: Hypoxia. Covid. FINDINGS: An AP, portable, upright chest radiograph is compared to study dated 12/20/2020 and correlat ed with chest CT dated 12/17/2020. The cardiomediastinal silhouette is unremarkable noting atheroscler otic calcification of the thoracic aorta. The pulmonary vasculature is noncongested. Emphysema and ch ronic interstitial thickening is similar to previous. Airspace consolidation is again seen in the lef t lower lobe with a small left pleural effusion. The right lung appears clear. No pneumothorax is see n. Skeletal structures are osteopenic. The bony thorax is grossly intact. IMPRESSION: 1. Emphysema. 2. Left lower lobe consolidation and a small left pleural effusion is similar to previous. Continued follow-up to resolution is recommended. ACT 112: Negative or not required by law. Electronically signed by: John Poole M.D. 12/23/2020 11:44 AM
[2020-12-23] MEDS: cefTRIAXone SODIUM 1,000 MG in DEXTROSE 5% 50 ML IV SCH (15:43)
[2020-12-23] MEDS: ENOXAPARIN INJ 40 MG/0.4 ML SYR SQ SCH (20:52)
[2020-12-24] MEDS: HYDROcodone/HOMATROPINE SYRUP 5MG/1.5MG 5ML UDP PO SCH ×6 (03:26→22:55)
[2020-12-24] MEDS: guaiFENesin 600 MG TABCR PO SCH ×2 (08:42→21:04)
[2020-12-24] MEDS: dexAMETHasone 6 MG in SYRINGE 0 ML IV SCH (08:42)
[2020-12-24] MEDS: POLYETHYLENE (MIRALAX) 17 GM PACK PO SCH (09:24)
--- NOTE | 2020-12-24 09:47 | Hospitalist Progress Note ---
Date of Service December 24, 2020 Assessment & Plan (1) Pneumonia due to COVID-19 virus: Plan: Pneumonia due to COVID-19 virus/secondary bacterial pneumonia/hypoxia- Symptoms present for least 2 weeks, slowly worsening Was requiring 2L on admission, then 5L, then on 12/20 up to HFNC 35L, 70%FiO2 CXR progressive infiltrates on 12/20 got Tocilizumab on 12/20 continue to encourage prone positioning as often as possible, he is not very compliant great response since 12/20, down to 9L today will give a trial of Lasix 20mg IV x 1 this morning, see if he responds Continue dexamethasone 6 mg IV daily for 10 days, day 8 today Continue Mucinex every 12h Albuterol HFA 2 puffs 4 times daily and alb neb q2h prn -Continue on incentive spirometer and flutter valve completed Ceftriaxone and Zithromax Given rounded opacity in left lower lung which could represent atelectasis versus pneumonia, radiology recommends repeat CT chest in 3 months to ensure resolution (2) Hypoxia: Plan: acute hypoxic respiratory failure from COVID 19 pneumonia try to wean as tolerated, treatment for COVID above today he is stable on 9L, no distress give a dose of Lasix 20mg IV x 1 see if he responds (3) Secondary bacterial pneumonia: Plan: See above x-ray and CT showed left lower lobe consolidation completed Rocephin and Zithromax Repeat imaging with chest CT in 3 months as above (4) Renal insufficiency: Plan: Creatinine 1.4 upon admission, with unknown baseline. Now improved down to normal No fluids needed eating and drinking sufficient although not great Cr is normal (5) Transaminitis: Plan: AST 75 upon admission. Almost completely back to normal now Likely secondary to COVID-19 infection (6) Tobacco use disorder: Plan: Cessation counseling NicoDerm patch if required Plan: DVT prophylaxis Lovenox SQ Disposition-continued stay on PCU Discussed his care with his who is also admitted to hospital in room next door, she is going home today Admission and Anticipated Discharge Date Admission Date: December 17, 2020 Subjective patient frustrated that he is still on 9L he wants to go home, wants to know how much longer he is happy his is going home explained that once he gets down to 3-4 L I can get him home, too much oxygen right now he is eating well, no nausea no cough, no chest pain, no fever, no diarrhea will give a dose of Lasix 20mg IV to see if he responds Review of Systems Review of Systems: All systems reviewed & are unremarkable except as noted in Subjective Physical Exam Constitutional: well developed, well nourished, + ill appearing and comfortable; no acute distress Neck: trachea midline, no thyromegaly Respiratory: no respiratory distress, no labored breathing and does not use accessory muscles Auscultation: lungs clear to auscultation bilaterally; no crackles, no rales, no rhonchi and no wheezes Cardiovascular: RRR, no murmur, no edema Gastrointestinal (Abdomen): normal bowel sounds, soft, nontender, no hepatosplenomegaly Musculoskeletal: no cyanosis or clubbing, extremities motor strength 5/5 Skin: no rashes, warm and dry Neurologic: patellar DTR's 2+ bilat, sensation intact and PERRL, EOMI, accommodation nl, no face palsy, no dysarthria Psychiatric: A+Ox3, euthymic affect Results & Data Results & Data ([facility]) Vital Signs (Past 12 Hours) Vital Signs Temp Pulse Pulse Pulse Resp BP Pulse Ox 12/24/20 08:00 58 L 12/24/20 07:42 36.5 C 58 L 20 113/58 L 95 12/24/20 03:27 36.5 C 62 15 130/67 92 12/23/20 23:10 36.3 C L 64 17 126/66 98 12/23/20 22:20 57 L Laboratory Results Laboratory Results - last 24 hr 12/23/20 12/23/20 10:16 10:16 WBC 9.77 RBC 4.68 L Hgb 14.9 Hct 44.3 MCV 94.7 MCH 31.8 MCHC 33.6 RDW Std Deviation 47.3 H RDW Coeff of Pal 13.8 Plt Count 463 H MPV 9.5 Sodium 135 L Potassium 4.1 Chloride 105 Carbon Dioxide 29 Anion Gap 1.0 L BUN 18 Creatinine 0.75 Est Cr Clr Drug Dosing 93.3 Est GFR ( Amer) 109.2 Est GFR (Non-Af Amer) 94.3 BUN/Creatinine Ratio 23.7 H Glucose 114 H Calcium 8.7 C-Reactive Protein 1.40 H NT-Pro-B Natriuret Pep 239 Medications Administered Current Inpatient Medications Acetaminophen (Acetaminophen 325 Mg Tab) 650 mg PO Q4H PRN PRN Reason: Pain or Fever Stop: 01/16/21 15:34 Last Admin: 12/20/20 08:01 Dose: 650 mg Documented by: Albuterol (Albut/Ipratrop 3mg/0.5mg Neb 3 Ml Vial) 3 ml NEB Q2H PRN PRN Reason: dyspnea Stop: 01/16/21 15:34 Albuterol (Albuterol Hfa 8 Gm Inhaler) 2 puffs INH Q4R PRN; Protocol PRN Reason: Shortness Of Breath Or Wheezin Stop: 01/21/21 09:33 Enoxaparin Sodium (Enoxaparin Inj 40 Mg/0.4 Ml Syr) 40 mg SQ Q24H AVINASH Stop: 01/16/21 20:59 Last Admin: 12/23/20 20:52 Dose: 40 mg Documented by: Guaifenesin (Guaifenesin 600 Mg Tabcr) 1,200 mg PO Q12 AVINASH Stop: 01/16/21 20:59 Last Admin: 12/24/20 08:42 Dose: 1,200 mg Documented by: Hydrocodone Bit/Homatropine Methylb (Hydrocodone/Homatropine Syrup 5mg/1.5mg 5ml Udp) 5 ml PO Q4H AVINASH Stop: 01/04/21 10:59 Last Admin: 12/24/20 06:07 Dose: 5 ml Documented by: Dexamethasone 6 mg/ Syringe 1.5 mls @ 1 mls/min IV Q24H AVINASH Stop: 01/17/21 08:59 Last Admin: 12/24/20 08:42 Dose: 1 mls/min Documented by: Ceftriaxone Sodium 1,000 mg/ (Dextrose) 50 mls @ 100 mls/hr IV Q24H AVINASH; Protocol Stop: 12/24/20 15:59 Last Infusion: 12/23/20 16:13 Dose: Infused Documented by: Furosemide 20 mg/ Syringe 2 mls @ 4 mls/min IV ONE ONE Stop: 12/24/20 09:41 Ondansetron HCl (Ondansetron Inj 2 Mg/Ml 2 Ml Vial) 4 mg IV Q6H PRN PRN Reason: Nausea Stop: 01/16/21 15:34 Polyethylene Glycol (Polyethylene (Miralax) 17 Gm Pack) 17 gm PO DAILY AVINASH Stop: 01/23/21 08:59 Last Admin: 12/24/20 09:24 Dose: Not Given Documented by: PG Care Time/CCT Total # of Minutes Spent Total Time Spent with Patient: Total time spent is greater than 50% in coordination of care (as documented) at patient's floor/unit and/or counseling patient: Coding Level of Care Code 24574 Subseq Hosp Care Lvl 3 Diagnoses Pneumonia due to COVID-19 virus U07.1; J12.82 Hypoxia R09.02 Secondary bacterial pneumonia J15.9 Renal insufficiency N28.9 Transaminitis R74.01 Tobacco use disorder F17.200
[2020-12-24] MEDS ORDERED: FUROSEMIDE 20 MG in SYRINGE 0 ML IV ONE (10:00)
[2020-12-24] MEDS: ENOXAPARIN INJ 40 MG/0.4 ML SYR SQ SCH (21:05)
[2020-12-25] MEDS: HYDROcodone/HOMATROPINE SYRUP 5MG/1.5MG 5ML UDP PO SCH ×4 (04:22→15:17)
[2020-12-25 06:39] LABS: BUN Creatinine Ratio 37.1 (10-20); Calcium 8.6 mg/dl (8.5-10.1); Creatinine Clr Calc Pharmacy 121.1 ml/min; Est GFR (African American) 122.3 ml/min; Est GFR (Non-African American) 105.5 ml/min
[2020-12-25] MEDS: POLYETHYLENE (MIRALAX) 17 GM PACK PO SCH (08:26)
[2020-12-25] MEDS: dexAMETHasone 6 MG in SYRINGE 0 ML IV SCH (08:28)
[2020-12-25] MEDS: guaiFENesin 600 MG TABCR PO SCH ×2 (08:28→20:02)
[2020-12-25] MEDS ORDERED: FUROSEMIDE 20 MG in SYRINGE 0 ML IV ONE (09:00)
--- NOTE | 2020-12-25 12:24 | Hospitalist Progress Note ---
Date of Service December 25, 2020 Assessment & Plan (1) Pneumonia due to COVID-19 virus: Plan: Pneumonia due to COVID-19 virus/secondary bacterial pneumonia/hypoxia- Symptoms present for least 2 weeks, slowly worsening Was requiring 2L on admission, then 5L, then on 12/20 up to HFNC 35L, 70%FiO2 CXR progressive infiltrates on 12/20 got Tocilizumab on 12/20 continue to encourage prone positioning as often as possible, he is not very compliant great response since 12/20, down to 3-5L today might be ready for two step and discharge in the next 24-48 hours good response to Lasix 20mg IV yesterday and this morning, improving his saturations Continue dexamethasone 6 mg IV daily for 10 days, day 9 today Continue Mucinex every 12h Albuterol HFA 2 puffs 4 times daily and alb neb q2h prn -Continue on incentive spirometer and flutter valve completed Ceftriaxone and Zithromax Given rounded opacity in left lower lung which could represent atelectasis versus pneumonia, radiology recommends repeat CT chest in 3 months to ensure resolution (2) Hypoxia: Plan: acute hypoxic respiratory failure from COVID 19 pneumonia try to wean as tolerated, treatment for COVID above today he is stable on 3-5L, no distress good response to Lasix yesterday and today, consider repeating it tomorrow (3) Secondary bacterial pneumonia: Plan: See above x-ray and CT showed left lower lobe consolidation completed Rocephin and Zithromax Repeat imaging with chest CT in 3 months as above (4) Renal insufficiency: Plan: Creatinine 1.4 upon admission, with unknown baseline. Now improved down to normal No fluids needed eating and drinking sufficient although not great Cr is normal. K is > 4 (5) Transaminitis: Plan: AST 75 upon admission. Almost completely back to normal now Likely secondary to COVID-19 infection (6) Tobacco use disorder: Plan: Cessation counseling NicoDerm patch if required Plan: DVT prophylaxis Lovenox SQ Disposition-continued stay on PCU, try to discharge in the next 24-48 hours if oxygen requirements continue to come down Admission and Anticipated Discharge Date Admission Date: December 17, 2020 Subjective patient is breathing easier, down to 3-5L this morning consistently responding well to Lasix 20mg IV yesterday and this morning vitals stable, eating well, no fever, minimal cough discussed maybe getting a 2 step this weekend and trying to get him home with his he is tearful, says he misses her a lot and just wants to get home Review of Systems Review of Systems: All systems reviewed & are unremarkable except as noted in Subjective Respiratory: + cough and + dyspnea on exertion; no dyspnea Cardiovascular: no chest pain Gastrointestinal: + constipation; no abdominal pain, no nausea, no vomiting and no diarrhea/loose stools Physical Exam Constitutional: well developed, well nourished, + well hydrated and comfortable; no acute distress Neck: trachea midline, no thyromegaly Respiratory: no respiratory distress, no labored breathing and does not use accessory muscles Auscultation: lungs clear to auscultation bilaterally; no crackles, no rales, no rhonchi and no wheezes Cardiovascular: RRR, no murmur, no edema Gastrointestinal (Abdomen): normal bowel sounds, soft, nontender, no hepatosplenomegaly Musculoskeletal: no cyanosis or clubbing, extremities motor strength 5/5 Skin: no rashes, warm and dry Neurologic: patellar DTR's 2+ bilat, sensation intact and PERRL, EOMI, accommodation nl, no face palsy, no dysarthria Psychiatric: A+Ox3, euthymic affect Results & Data Results & Data ([facility]) Vital Signs (Past 12 Hours) Vital Signs Temp Pulse Pulse Pulse Resp BP BP 12/25/20 11:03 36.4 C L 68 18 133/74 12/25/20 08:00 58 L 12/25/20 07:30 36.4 C L 54 L 19 123/66 12/25/20 03:33 36.8 C 79 17 129/73 Pulse Ox 12/25/20 11:03 90 12/25/20 08:00 12/25/20 07:30 94 12/25/20 03:33 97 Laboratory Results Laboratory Results - last 24 hr 12/25/20 05:53 Sodium 136 Potassium 4.0 Chloride 104 Carbon Dioxide 29 Anion Gap 3.0 BUN 21 H Creatinine 0.57 L Est Cr Clr Drug Dosing 121.1 Est GFR ( Amer) 122.3 Est GFR (Non-Af Amer) 105.5 BUN/Creatinine Ratio 37.1 H Glucose 98 Calcium 8.6 Medications Administered Current Inpatient Medications Acetaminophen (Acetaminophen 325 Mg Tab) 650 mg PO Q4H PRN PRN Reason: Pain or Fever Stop: 01/16/21 15:34 Last Admin: 12/20/20 08:01 Dose: 650 mg Documented by: Albuterol (Albut/Ipratrop 3mg/0.5mg Neb 3 Ml Vial) 3 ml NEB Q2H PRN PRN Reason: dyspnea Stop: 01/16/21 15:34 Albuterol (Albuterol Hfa 8 Gm Inhaler) 2 puffs INH Q4R PRN; Protocol PRN Reason: Shortness Of Breath Or Wheezin Stop: 01/21/21 09:33 Enoxaparin Sodium (Enoxaparin Inj 40 Mg/0.4 Ml Syr) 40 mg SQ Q24H AVINASH Stop: 01/16/21 20:59 Last Admin: 12/24/20 21:05 Dose: 40 mg Documented by: Guaifenesin (Guaifenesin 600 Mg Tabcr) 1,200 mg PO Q12 AVINASH Stop: 01/16/21 20:59 Last Admin: 12/25/20 08:28 Dose: 1,200 mg Documented by: Hydrocodone Bit/Homatropine Methylb (Hydrocodone/Homatropine Syrup 5mg/1.5mg 5ml Udp) 5 ml PO Q4H AVINASH Stop: 01/04/21 10:59 Last Admin: 12/25/20 11:03 Dose: Not Given Documented by: Dexamethasone 6 mg/ Syringe 1.5 mls @ 1 mls/min IV Q24H AVINASH Stop: 01/17/21 08:59 Last Admin: 12/25/20 08:28 Dose: 1 mls/min Documented by: Ondansetron HCl (Ondansetron Inj 2 Mg/Ml 2 Ml Vial) 4 mg IV Q6H PRN PRN Reason: Nausea Stop: 01/16/21 15:34 Polyethylene Glycol (Polyethylene (Miralax) 17 Gm Pack) 17 gm PO DAILY AVINASH Stop: 01/23/21 08:59 Last Admin: 12/25/20 08:26 Dose: Not Given Documented by: PG Care Time/CCT Total # of Minutes Spent Total Time Spent with Patient: Total time spent is greater than 50% in coordination of care (as documented) at patient's floor/unit and/or counseling patient: Coding Level of Care Code 22413 Subseq Hosp Care Lvl 3 Diagnoses Pneumonia due to COVID-19 virus U07.1; J12.82 Hypoxia R09.02 Secondary bacterial pneumonia J15.9 Renal insufficiency N28.9 Transaminitis R74.01 Tobacco use disorder F17.200
[2020-12-25] MEDS ORDERED: HYDROcodone/HOMATROPINE SYRUP 5MG/1.5MG 5ML UDP PO PRN (15:23)
[2020-12-25] MEDS: ENOXAPARIN INJ 40 MG/0.4 ML SYR SQ SCH (20:02)
[2020-12-26] MEDS: dexAMETHasone 6 MG in SYRINGE 0 ML IV SCH (07:37)
[2020-12-26] MEDS: guaiFENesin 600 MG TABCR PO SCH (07:38)
[2020-12-26] MEDS ORDERED: FUROSEMIDE 40 MG/4 ML VIAL IV ONE (07:41)
[2020-12-26] MEDS ORDERED: FUROSEMIDE 20 MG in SYRINGE 0 ML IV ONE (07:55)
[2020-12-26] MEDS: POLYETHYLENE (MIRALAX) 17 GM PACK PO SCH (10:19)
--- NOTE | 2020-12-26 11:19 | Discharge Summary ---
Date of Service December 26, 2020 Admission HPI Per Admitting Provider The patient is a 70-year-old male with a past medical history of tobacco abuse who presents to the emergency department, along with his , with similar symptoms as noted above. Of note, he did not receive the COVID-19 vaccine. Chest x-ray in the emergency department revealed a left lower lobe pneumonia, and separate left pleural effusion. CT angiography of chest PE protocol was negative for PE, did show mild volume loss and mild left pleural thickening with a focal consolidation in the left lower lobe posteriorly. There were a few faint small patchy groundglass densities within the right middle lobe and left upper lobe raising the possibility of a viral pneumonia. Emphysema. Laboratory abnormalities: Sodium 134, creatinine 1.44, AST 75, albumin 3.1, BUN 75, glucose 126, D-dimer 650. COVID-19 positive The patient was administered dexamethasone 6 mg IV and placed on normal saline at 125 mils per hour by the ED Principal Diagnosis COVID 19 pneumonia, acute hypoxic respiratory failure Discharge Exam Constitutional well developed, well nourished, + well hydrated and comfortable; no acute distress Neck trachea midline, no thyromegaly Respiratory no respiratory distress, no labored breathing and does not use accessory muscles Auscultation: lungs clear to auscultation bilaterally; no crackles, no rales, no rhonchi and no wheezes Cardiovascular RRR, no murmur, no edema Gastrointestinal (Abdomen) normal bowel sounds, soft, nontender, no hepatosplenomegaly Musculoskeletal no cyanosis or clubbing, extremities motor strength 5/5 Skin no rashes, warm and dry Neurologic patellar DTR's 2+ bilat, sensation intact and PERRL, EOMI, accommodation nl, no face palsy, no dysarthria Psychiatric A+Ox3, euthymic affect Discharge Data Allergies Allergy/AdvReac Type Severity Reaction Status Date / Time No Known Allergies Allergy Unverified 12/17/20 10:22 Consultations 12/17/20 11:41 ED Decision to Admit Stat Ordered Studies 12/17/20 10:17 CT angio chest PE protocol Stat Hospital Course (1) Pneumonia due to COVID-19 virus: Pneumonia due to COVID-19 virus/secondary bacterial pneumonia/hypoxia- Symptoms present for least 2 weeks, slowly worsening Was requiring 2L on admission, then 5L, then on 12/20 up to HFNC 35L, 70%FiO2 CXR progressive infiltrates on 12/20 got Tocilizumab on 12/20 great response since 12/20, down to 3-5L the past two days, now on room air for two step today, no home oxygen requirements good response to Lasix 20mg IV yesterday and this morning, got him down to room air Completed 10 days of dexamethasone 6 mg IV daily, no further treatment needed Continue Mucinex every 12h Albuterol HFA 2 puffs 4 times daily and alb neb q2h prn -Continue on incentive spirometer and flutter valve completed Ceftriaxone and Zithromax Given rounded opacity in left lower lung which could represent atelectasis versus pneumonia, radiology recommends repeat CT chest in 3 months to ensure resolution have PCP order the CT chest in 3 months (2) Hypoxia: acute hypoxic respiratory failure from COVID 19 pneumonia down to room air today, both at rest and on exertion with 2 step pleased he does not need home oxygen (3) Secondary bacterial pneumonia: See above x-ray and CT showed left lower lobe consolidation completed Rocephin and Zithromax Repeat imaging with chest CT in 3 months as above (4) Renal insufficiency: Creatinine 1.4 upon admission, with unknown baseline. Now improved down to normal No fluids needed eating and drinking much better past three days Cr is normal. K is > 4 (5) Transaminitis: AST 75 upon admission. Almost completely back to normal now Likely secondary to COVID-19 infection (6) Tobacco use disorder: Cessation counseling NicoDerm patch if required DVT prophylaxis Lovenox SQ Disposition- discharge to home Total Time Total Time Spent Total Time Spent (In Minutes): 32 Discharge Plan Discharge Items Patient Disposition: Home - Self-Care Reason For Visit: COVID-19 PNEUMONIA, BACTERIAL PNEUMONIA Discharge Diagnosis: COVID 19 pneumonia Acute hypoxic respiratory failure Condition on Discharge: Good Goals: stay well nourished, get rest Activity: Resume your previous activity Weightbearing: Full weightbearing Non-emergency contact: Primary Care Provider Call non-emergency contact if: you have any medication questions, your symptoms worsen and you have a fever Follow-up/Referrals: Jevon Rankin [Primary Care Provider] - (1 week) Diet: Regular Addtl Attending Provider Instructions: Medications: - HYCODAN: take as needed for cough COVID 19 pneumonia, acute hypoxic respiratory failure, acute kidney injury good response to dexamethasone, you received 10 days, no further treatment needed you got Tocilizumab on 12/20, great response you completed course of antibiotics steadily improved with oxygen requirement the past few days, good response to Lasix daily but today you appear euvolemic will discharge to home, stay well rested, well nourished no need to stay in isolation as it has been 10 days since positive COVID test would only expect you to get better slowly, contact your PCP if you start to feel worse Pending Studies at Discharge: No Stand-Alone Forms: My [facility] [place], Smoking Cessation Medications and DC Order Prescriptions: New hydrocodone-homatropine [Hydromet] 5-1.5 mg/5 mL Syrup 5 ml PO Q4H PRN (Reason: cough) 7 Days Qty: 120 RF: 0 Discontinued Mucinex Fst-Mx Dy-Nt Cold(dph) 10 mg-650 mg/20 mL (day-night) Liquid, Sequential 20 ml PO DIRECTED PRN (Reason: Cold Symptoms) RF: 0 Discharge Orders: Discharge Order (Routine); Ordered 12/26/20 Ordered By: Clifton Moreno Admission Data Admit Date/Time: 12/17/20 11:48 Attending Provider: Clifton Moreno Admit Provider: Benedict Rm Primary Care Provider: Jevon Rankin Other Providers: Benedict Rm Coding Level of Care Code D/C DAY MANAGEMENT >30 MINS Diagnoses Pneumonia due to COVID-19 virus U07.1; J12.82 Hypoxia R09.02 Secondary bacterial pneumonia J15.9 Renal insufficiency N28.9 Transaminitis R74.01 Tobacco use disorder F17.200
== END 2020-12-26 12:46 | disposition home or self-care (01) | DRG 177 ==
LOC: ED 09:03 → 2S 11:48 → SUATTDRO 11:48 → 2S 15:05 → 2E 12-21 23:02
DX: Z87.891 Personal history of nicotine dependence; J96.01 Acute respiratory failure with hypoxia; U07.1 COVID-19; R74.01 Elevation of levels of liver transaminase levels; N28.9 Disorder of kidney and ureter, unspecified; J12.82 Pneumonia due to coronavirus disease 2019; J15.9 Unspecified bacterial pneumonia